=== PATIENT | female | born 1985 | race Caucasian/White ===

== ENCOUNTER → 2018-02-14 16:22 | Outpatient (CLI) | payer BC, SELFPAY ==
[2018-02-14 19:07] LABS: Chlamydia Trachomatis by PCR Negative (Negative); Neisserai gonorrhoeae by PCR Negative (Negative); Probe Check PASS; Sample Adequacy Control PASS; Specimen Processing Control PASS
== END ==
PROVIDERS: Family Provider Family Medicine; PCP Family Medicine; Visit Provider Obstetrics & Gynecology
DX: Z34.90 Encounter for supervision of normal pregnancy, unspecified, unspecified trimester (principal)
CPT/HCPCS: 87491; 87591

== ENCOUNTER → 2018-03-02 17:05 | Outpatient (CLI) | payer SELFPAY | PROVIDERS: Family Provider Family Medicine; PCP Family Medicine; Visit Provider Obstetrics & Gynecology | DX: O09.90 Supervision of high risk pregnancy, unspecified, unspecified trimester (principal); Z3A.00 Weeks of gestation of pregnancy not specified | CPT/HCPCS: 87086; 87088 ==

== ENCOUNTER → 2018-04-11 15:56 | Outpatient (CLI) | payer OTHER, SELFPAY ==
[2018-04-11 17:25] LABS: Absolute Lymphocyte Count 2.33 X10^3/ul (0.83-4.51); Absolute Neutrophil Count 7.9 X10^3/uL (2.0-7.7); Basophil# 0.03 X10^3/uL; Basophil% 0.3 % (0-1); Eosinophil# 0.24 X10^3/uL; Eosinophils% 2.2 % (0-5); Hematocrit 34.6 % (37-47); Hemoglobin 11.6 g/dl (12.0-15.0); Lymphocyte # 2.33 X10^3/ul (4.0); Lymphocyte % 21.1 % (19-41); Mean Corp Hgb Conc 33.5 g/gl (32-36); Mean Corpuscular Hgb 30.1 pg (27.0-32.0); Mean Corpuscular Volume 89.6 fL (81-99); Mean Platelet Vol. 8.6 fl (6.2-12.0); Monocyte# 0.51 X10^3/uL; Monocyte% 4.6 % (0-10); Neutrophil # 7.91 X10^3/uL (2.7-7.7); Neutrophil % 71.6 % (47-70); POSITIVE COUNT NO; POSITIVE DIFFERENTIAL NO; POSITIVE MORPHOLOGY NO; Platelet Count 288 K/mm3 (150-450); RBC Distribution Width SD 41.7 fl (35.1-43.9); Red Blood Count 3.86 M/mm3 (4.2-5.4)
[2018-04-11 17:55] LABS: ALB/GLOB Ratio 0.7 RATIO (0.9-2.4); AST(SGOT) 12 U/L (15-37); Alanine Aminotransfer ALT/SGPT 21 U/L (13-56); Alkaline Phosphatase 45 U/L (45-117); Anion Gap 10 (5-15); BUN 9 mg/dL (7-18); BUN/Creat Ratio 17.6 RATIO (10-20); Calcium,Total 8.4 mg/dL (8.5-10.1); Chloride 104 mmol/L (98-107); Creatinine, Serum 0.51 mg/dL (0.55-1.02); EST Glomerular Filtration Rate 149 mL/min (>60); Est Glom Filt Rate - Afr Amer 181 mL/min (>60); Globulin 4.2 g/dL (2.2-4.2); Glucose 108 mg/dL (74-106); Glucose Challenge Gest 1H 50g 108 mg/dL (70-140); Potassium 3.2 mmol/L (3.5-5.1); Protein, Total 7.2 g/dL (6.4-8.2); Sodium Level 135 mmol/L (136-145)
[2018-04-11 19:02] LABS: HIV - WCH Non-Reactive (Nonreactive); Rubella IgG 19.3 IU/mL
[2018-04-13 01:18] LABS: Rapid Plasmin Reagin (RPR) NONREACTIVE (NONREACTIVE)
[2018-04-13 10:53] LABS: HEPATITIS B SURFACE AG Negative (Negative)
== END ==
PROVIDERS: Visit Provider Obstetrics & Gynecology
DX: O09.91 Supervision of high risk pregnancy, unspecified, first trimester (principal); Z3A.00 Weeks of gestation of pregnancy not specified
CPT/HCPCS: 36415; 80053; 82950; 85025; 86592; 86703; 86762; 86850; 86900; 87340

== ENCOUNTER → 2018-04-25 16:00 | Outpatient (CLI) | payer OTHER, SELFPAY ==
[2018-04-25 16:28] LABS: Protein, Urine (Random) 17.6 mg/dL (<11.9); Protein:Creat Ratio 109 mg/g CRE (0-200)
[2018-04-25 18:51] LABS: Chlamydia Trachomatis by PCR Negative (Negative); Neisserai gonorrhoeae by PCR Negative (Negative); Probe Check PASS; Sample Adequacy Control PASS; Specimen Processing Control PASS
== END ==
PROVIDERS: Family Provider Family Medicine; PCP Family Medicine; Referring Provider Obstetrics & Gynecology; Visit Provider Obstetrics & Gynecology
DX: I10 Essential (primary) hypertension (principal)
CPT/HCPCS: 82570; 84156; 87086; 87088; 87491; 87591

== ENCOUNTER → 2018-05-11 15:32 | Outpatient (CLI) | payer OTHER, SELFPAY ==
--- NOTE | 2018-05-11 15:33 | US_ITS ---
STUDY: SECOND AND THIRD TRIMESTER OBSTETRICAL ULTRASOUND REASON FOR EXAM: Female, 33 years old. Anatomy. LMP: December 28, 2017. TECHNIQUE: Transabdominal # of Images: 109 TECHNICAL QUALITY: Adequate. PRIOR ULTRASOUND: None. FINDINGS: There is a single intrauterine fetus. The fetus is in a breech presentation. There is demonstrated cardiac activity with a heart rate of 156 bpm. There is a normal amniotic fluid volume. The largest amniotic fluid pocket measures 4.7 cm. The placenta is anterior in location and is not low lying. There are Grade 0 placental changes. The cervix measures 4.5 cm in length. The bilateral adnexal regions are normal. BIOMETRY: BPD: 4.62 cm: 20 weeks, 0 days HC: 17.68 cm: 20 weeks, 2 days AC: 15.45 cm: 20 weeks, 5 days FL: 3.22 cm: 20 weeks, 1 days CI: 80 FL/BPD: 70 FL/HC: FL/AC: 21 HC/AC: 1.4 age by current US: 20 weeks, 2 days. NATALIE by current US: September 26, 2018. Estimated weight: 346 grams, +/- 51 grams, 97 %. Age by LMP: 19 weeks, 1 days. NATALIE by LMP: October 04, 2018. ANATOMY: Gender: Indeterminant Cranium: Normal lateral ventricles. Normal choroid plexus. Normal cerebellum. Normal cisterna magna. The face, nose and lips are not visualized. Chest: Normal 4-chamber heart. Abdomen/Pelvis: Normal diaphragm. Normal stomach. Normal abdominal wall. Normal cord insertion. Normal 3 vessel cord. Normal kidneys. Normal bladder. Spine: Normal cervical spine. Normal thoracic spine. Normal lumbar spine. Normal sacrum. Extremities: Normal bilateral upper extremities. Normal bilateral lower extremities. US/OB Anatomy Scan IMPRESSION: 1. Live single intrauterine at 20 weeks, 2 days. NATALIE is September 26, 2018. 2. EFW 346 g. 3. Adequate amniotic fluid. 4. Anterior grade 1 placenta. 5. Breech presentation. 6. Nonvisualization of the face, nose and lips. The anatomy is otherwise grossly unremarkable. Electronically Signed: Nathanael Harris DO at 8:37 EDT Tel [phone], Service support ,
== END ==
PROVIDERS: Family Provider Family Medicine; PCP Family Medicine; Referring Provider Obstetrics & Gynecology; Visit Provider Obstetrics & Gynecology
DX: O09.90 Supervision of high risk pregnancy, unspecified, unspecified trimester (principal)
CPT/HCPCS: 76805

== ENCOUNTER → 2018-06-22 18:38 | Outpatient (CLI) | payer OTHER, SELFPAY ==
[2018-06-22 16:15] VITALS: BMI 37.7
[2018-06-22 19:27] LABS: Protein, Urine (Random) 33.5 mg/dL (<11.9); Protein:Creat Ratio 110 mg/g CRE (0-200)
--- OUTSIDE RECORDS SUMMARY | 2018-08-17 16:37 | XMS RPT_ITS ---
:1985 Author Organization OHIP Support Name Relationship Address Phone DESTINEE HOOD Unavailable [address] + [place] [address] TRILOCSCH Unavailable [address] + [place] [address] [place], YRIS Unavailable Unavailable + [place] [address] RUTH DESTINEE Unavailable [address] + [place] [address] TRILOCSCH Unavailable [address] + [place] [address] [place], YRIS Unavailable Unavailable + [place] [address] DESTINEE HOOD Unavailable [address] + [place] [address] TRILOCSCH Unavailable [address] + [place] [address] [place], YRIS Unavailable Unavailable + [place] [address] DESTINEE HOOD Unavailable [address] + [place] [address] TRILOCSCH Unavailable [address] + [place] [address] [place], YRIS Unavailable 1 + [place] [address] DESTINEE HOOD Unavailable [address] + [place] [address] TRILOCSCH Unavailable [address] + [place] [address] [place], YRIS Unavailable 1 + [place] [address] DESTINEE HOOD Unavailable [address] + [place] [address] TRILOCSCH Unavailable [address] + [place] [address] [place], YRIS Unavailable Unavailable + [place] [address] DESTINEE HOOD Unavailable [address] + [place] [address] TRILOCSCH Unavailable [address] + [place] [address] [place], YRIS Unavailable [address] + [place] [address] DESTINEE HOOD Unavailable [address] + [place] [address] [facility] Unavailable [address] + [place] [address] [place], YRIS Unavailable [address] + [place] [address] DESTINEE HOOD Unavailable [address] + [place], [place] [id number] [place] [address] [address] + [place] [address] [place], YRIS Unavailable [address] + [place] [address] DESTINEE HOOD Unavailable [address] + [place] [address] [facility] Unavailable [address] + [place] [address] [place], YRIS Unavailable [address] + [place] [address] DESTINEE HOOD Unavailable [address] + [place], [place] [id number] [place] [address] Unavailable [address] + [place] [address] [place], YRIS Unavailable [address] + [place] [address] Destinee Hood Unavailable [address] + [place], [place] [id number] [place] [address] Unavailable . +UN [place] [address] [place], YRIS Unavailable [address] + [place] [address] Destinee Hood Unavailable [address] + [place] [address] [facility] Unavailable . +UN [address] YRIS Unavailable [address] + [place] [address] DESTINEE HOOD Unavailable [address] + [place] [address] [facility] Unavailable [address] + [address] YRIS Unavailable [address] + [place] [address] Care Team Providers Name Role Phone Yi Patton Attending Unavailable Yi Patton Referring Unavailable Omar, Felipe Primary Care Unavailable Rome Gaines Attending Unavailable LeandroonyYi Referring Unavailable Omar, Felipe Primary Care Unavailable Yi Patton Consulting Unavailable MarkanthonyYi Attending Unavailable Omar, Felipe Referring Unavailable Omar, Felipe Primary Care Unavailable MarcanthonyYi Attending Unavailable Omar, Felipe Primary Care Unavailable MarcanthonyYi Referring Unavailable MarcanthonyYi Attending Unavailable Omar, Felipe Referring Unavailable Omar, Felipe Primary Care Unavailable MarkanthonyYi Attending Unavailable Omar, Felipe Primary Care Unavailable MarcanthonyYi Referring Unavailable MarcanthonyYi Attending Unavailable Omar, Felipe Referring Unavailable Omar, Felipe Primary Care Unavailable MarcanthonyYi Attending Unavailable MarcanthonyYi Referring Unavailable Primay Care Physicia, No Primary Care Unavailable Cynthia Coleman Attending Unavailable Omar, Felipe Referring Unavailable MarcdeepakonyYi Attending Unavailable MarcanthonyYi Referring Unavailable Omar, Felipe Primary Care Unavailable Yi Patton Attending Unavailable MarkanthonyYi Referring Unavailable Omar, Felipe Primary Care Unavailable Yi Patton Attending Unavailable Omar, Felipe Referring Unavailable MarcanthonyYi Attending Unavailable Omar, Felipe Referring Unavailable MarcanthonyYi Attending Unavailable Omar, Felipe Primary Care Unavailable MarcanthonyYi Referring Unavailable PROBLEMS PROBLEMS DATE TYPE CONDITION / CODE ATTENDING STATUS SOURCE 07/06/2018 Unknown O16.9 - Rome Gaines Active [place] Unspecified [facility] hypertension, Repository unspecified trimester / O16.9(ICD-10) 06/23/2018 Unknown R80.9 - Marcanthony, Active [place] Proteinuria, [facility] unspecified / Hospital R80.9(ICD-10) Repository 06/22/2018 Unknown Z34.90 - Encounter Marcanthony, Active [place] for supervision of [facility] normal , Hospital unspecified, Repository unspecified trimester / Z34.90(ICD-10) 06/22/2018 Unknown Z98.891 - History Marcanthony, Active [place] of uterine scar [facility] from previous Hospital surgery / Repository Z98.891(ICD-10) 06/22/2018 Unknown 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, 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 / Hospital D68.51(ICD-10) Repository 06/22/2018 Unknown O16.2 - Marcanthony, Active [place] Unspecified [facility] hypertension, Repository second trimester / O16.2(ICD-10) 06/22/2018 Unknown O09.92 - Marcanthony, Active [place] Supervision of [facility] high risk Hospital , Repository unspecified, second trimester / O09.92(ICD-10) 06/22/2018 Unknown E87.6 - Marcanthony, Active [place] Hypokalemia / [facility] E87.6(ICD-10) Hospital Repository 05/25/2018 Unknown Z23 - Encounter Marcanthony, Active [place] for immunization / [facility] Z23(ICD-10) Hospital Repository 05/25/2018 Unknown Z3A.21 - 21 weeks Marcanthony, Active [place] gestation of [facility] / Hospital Z3A.21(ICD-10) Repository 04/25/2018 Unknown I10 - Essential Charlotte, Cynthia Active [place] (primary) [facility] hypertension / Hospital I10(ICD-10) Repository 03/06/2018 Unknown O09.90 - Marcanthony, Active [place] Supervision of [facility] high risk Hospital , Repository unspecified, unspecified trimester / O09.90(ICD-10) 03/19/2018 Unknown O16.1 - Marcanthony, Active [place] Unspecified [facility] hypertension, Repository first trimester / O16.1(ICD-10) 03/19/2018 Unknown O09.91 - Abdi Active [place] Supervision of [facility] , Repository unspecified, first trimester / O09.91(ICD-10) PROCEDURES PROCEDURES No Procedure Records FoundRESULTS RESULTS 12 LEAD ELECTROCARDIOGRAM Observed: 07/06/2018 Status: F Source: [place] 10:51 AM [facility] REPOSITORY [facility] Cardiovascular Services [address] [place] [address] 12 Lead EKG 07/03/18 1636 MR#: [id number] Acct: [id number] Name: JESUS HOOD Rep #: [id number] : 1985 33 From: Rome Gaines MD Attending Dr: Yi Patton MD Status: REG CLI Ordering Dr: Yi Patton MD Date: 07/03/18 Location: LAB Sex: F C Admitted: Test Reason : HIGH BP Blood Pressure : / mmHG Vent. Rate : 095 BPM Atrial Rate : 095 BPM P-R Int : 156 ms QRS Dur : 080 ms QT Int : 354 ms P-R-T Axes : 043 008 018 degrees QTc Int : 444 ms Normal sinus rhythm Low voltage QRS Borderline ECG Confirmed by LIANA JOHNSON, ROME ([id number]), market editor GRACIE ROUSSEAU ([id number]) on 07/06/2018 10:51:07 AM Referred By: Yi Patton Confirmed By:ROME GAINES MD 07/06/18 1051 Date Rome Gaines MD CC: Felipe Nelson MD; Yi Patton MD Signed POTASSIUM Collected: 07/03/2018 Status: F Source: [place] 4:23 PM [facility] REPOSITORY TYPE CODE TESTS RESULT OUT OF RANGE REFERENCE UNITS LAB L501.5600 3.5-5.1 mmol/L Low K 3.3 Performed By: #### L501.5600 #### [facility] [address] [place], [address] PROTEIN+CREATININE Collected: Status: F Source: [place] RATIO,URINE 06/22/2018 6:39 PM [facility] REPOSITORY TYPE CODE TESTS RESULT OUT OF RANGE REFERENCE UNITS LAB L501.1200 NO RANGE EST. mg/dL Normal UR CREAT 305.00 LAB L501.1930 <11.9 mg/dL High 33.5 PROTEIN,UR.R AN. LAB L501.1940 0-200 mg/g CRE Normal PROT:CRE 110 RATIO Performed By: #### L501.0900 #### [facility] [address] [place], [address] SILK CONDITIONER OFFICE VISIT Observed: 06/22/2018 Status: F Source: [place] REPORT 4:57 PM [facility] REPOSITORY [facility] [address] [place] [address] OFFICE VISIT Date of Service: 06/22/18 MR#: [id number] Acct: [id number] Name: JESUS HOOD Rep #: [id number] : 1985 Provider: Yi Patton MD Age/Sex: 33/F Location: [facility] Status: Signed Intake Vital Signs06/22/18 Height 5 ft 7 in 06/22/18 Weight: 241 lb 06/22/18 Body Mass Index (BMI) 37.7 06/22/18 Blood Pressure 120/82 H Intake Visit Reasons: EST OB 26 WEEKS Chief Complaint: est ob Desulfurizer Machine Required: No Is patient in pain?: No Allergies No Known Allergies Allergy (Verified 06/22/18 16:15) Medications vitamin,calcium,mnockngl-kgau-jkqeu acid tablet 1 tab PO QDAY 02/14/18 [History Confirmed 06/22/18] potassium chloride ER 20 mEq tablet,extended release 40 meq PO DAILY #60 tab 04/17/18 [Rx Confirmed 06/22/18] labetalol 200 mg tablet 200 mg PO BID #180 tab 06/22/18 [Rx Confirmed 06/22/18] Last Menstral Period: 12/28/17 Zika: Zika virus screening: Negative : No PFSH PFSH Medical History Hypertension (Chronic) Surgical History delivery delivered (Acute) Family History Mother Hypertension Father CVA (cerebral vascular accident) Factor 5 Leiden mutation, heterozygous Social History Smoking Status: Never smoker alcohol intake: never substance use type: does not use caffeine: Yes what type of physical activity do you participate in: walking seatbelt use: always do you feel safe at home: Yes 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 DateName GA/Weeks Outcome Route Bth WeighInfant GeLabor LgtAnesthesiDel LocatProvider FOB t n h a n Delivery Date: 02/28/13 On 03/02/18 @ 10:27 Mickie Figueroa Breach HPI EST OB 26 WEEKS: Details: JESUS HOOD is a 33 year old who presents for routine OB visit. OB Visit NATALIE Calculator Estimated Delivery Date 10/04/18 Based on LMP (certain) 12/28/17 Current WG 25w 1d Number 1 Expected Delivery Route/Plan Specific Issue/Plans flu vaccine: given tdap vaccine: [] rhogam: [] LARC form signed: [] labor support person: Destinee pain management: [] cut cord/dad catch: [] : [] PP control planned: [] special requests: [] Initial Weight: Not Recorded Date Weight BP Urine PrFHR FuHt Pres MoCTX DilationFetal StVisit NoProviderComments E ot v te [place] G Effac lucose ed Visit Notes Visit Date: 06/22/18 had mastitis this weekend. resolved with antibtiotics. bps well controlled. Yi Patton MD on 06/22/18 Visit Date: 05/25/18 no vb lof good fm n oregular ctx. Yi Patton MD on 05/25/18 Visit Date: 04/25/18 no VB, LOF. Difficulty swallowing Potassium Cynthia Coleman NP-C on 04/25/18 Visit Date: 04/05/18 no vb lof no cramping Yi Patton MD on 04/05/18 Visit Date: 03/02/18 no vb cramping Yi Patton MD on 03/02/18 Diagnostics Diagnostics Labs Blood Type O POSITIVE 04/11/18 Antibody Screen NEGATIVE 04/11/18 Hct 34.6 % (37-47) L 04/11/18 Hgb 11.6 g/dl (12.0-15.0) L 04/11/18 Obstetrics Ultrasound 05/11/18 Rubella IgG Antibody 19.3 IU/mL 04/11/18 RPR NONREACTIVE (NONREACTIVE) 04/11/18 Hep Bs Antigen Negative (Negative) 04/11/18 Chlam trachomat DNA PCR Negative (Negative) 04/25/18 N.gonorrhoeae DNA (PCR) Negative (Negative) 04/25/18 Glucose 1 Hr 50 gm 108 mg/dL (70-140) 04/11/18 Details: HIV: Urine Culture: Sequential Screen: NIPT Screen: Results [id number] Office Urine Glucose Negative Last Edit by Leann Robin on 06/22/18 16:20 Office Urine Protein 1+ Last Edit by Leann Robin on 06/22/18 16:20 Assessment AND Plan Problems 1. History of delivery Z98.891 discussed . uptodate eduation, 2. Hypertension affecting in second trimester O16.2 labetalol, check baseline labs 3. Z34.90 4. Factor V Leiden D68.51 discussed risks of DVT in - current recommendation for exp management and consider anticoagulation PP 5. Supervision of high risk in second trimester O09.92 *urine protein/cr ratio NATALIE 10/04/18 PC Ashley Destinee 6. Low serum potassium E87.6 04/25/18 Took short course potassium. Recheck next visit Plan movement and labor precautions reviewed. ACOG trimester education reviewed and updated. see problem list details for updated plan management information and see below for orders placed at this visit. [place] appropriate handout given. Orders Orders: Medications Refilled: Coding Level of Care Code OB Routine Diagnoses History of delivery Z98.891 Hypertension affecting in second trimester O16.2 Trimester: second trimester Z34.90 Factor V Leiden D68.51 Supervision of high risk in second trimester O09.92 Trimester: second trimester Low serum potassium E87.6 06/22/18 1657 <Electronically signed by Yi Patton MD> Date Yi Patton MD Cosigner Signature: Date (if applicable) CC: SILK CONDITIONER OFFICE VISIT Observed: 05/25/2018 Status: F Source: [place] REPORT 5:02 PM [facility] [address] [place] [address] OFFICE VISIT Date of Service: 05/25/18 MR#: [id number] Acct: [id number] Name: JESUS HOOD Rep #: [id number] : 1985 Provider: Yi Patton MD Age/Sex: 33/F Location: [facility] Status: Signed Intake Vital Signs05/25/18 Height 5 ft 7 in 05/25/18 Weight: 239 lb 6 oz 05/25/18 Body Mass Index (BMI) 37.5 05/25/18 Blood Pressure 150/88 H Intake Visit Reasons: EST OB 22 WEEKS Desulfurizer Machine Required: No Accompanied by: Is patient in pain?: No Allergies No Known Allergies Allergy (Verified 05/25/18 16:27) Medications vitamin,calcium,lqyppduy-ygjf-ecmtf acid tablet 1 tab PO QDAY 02/14/18 [History Confirmed 05/25/18] labetalol 200 mg tablet 200 mg PO BID #60 tab 04/16/18 [Rx Confirmed 05/25/18] potassium chloride ER 20 mEq tablet,extended release 40 meq PO DAILY #60 tab 04/17/18 [Rx Confirmed 05/25/18] Last Menstral Period: 12/28/17 Zika: Zika virus screening: Negative : No PFSH PFSH Medical History Hypertension (Chronic) Surgical History delivery delivered (Acute) Family History Mother Hypertension Father CVA (cerebral vascular accident) Factor 5 Leiden mutation, heterozygous Social History Smoking Status: Never smoker alcohol intake: never substance use type: does not use caffeine: Yes what type of physical activity do you participate in: walking seatbelt use: always do you feel safe at home: Yes 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 DateName GA/Weeks Outcome Route Bth WeighInfant GeLabor LgtAnesthesiDel LocatProvider FOB t n h a n Delivery Date: 02/28/13 On 03/02/18 @ 10:27 Mickie Figueroa Breach HPI EST OB 22 WEEKS: Details: JESUS HOOD is a 33 year old who presents for routine OB visit. OB Visit NATALIE Calculator Estimated Delivery Date 10/04/18 Based on LMP (certain) 12/28/17 Current WG 21w 1d Number 1 Expected Delivery Route/Plan Specific Issue/Plans flu vaccine: given tdap vaccine: [] rhogam: [] LARC form signed: [] labor support person: [place] pain management: [] cut cord/dad catch: [] : [] PP control planned: [] special requests: [] Initial Weight: Not Recorded Date Weight BP Urine PrFHR FuHt Pres MoCTX DilationFetal StVisit NoProviderComments E ot v te [place] G Effac lucose ed Visit Notes Visit Date: 05/25/18 no vb lof good fm n oregular ctx. Yi Patton MD on 05/25/18 Visit Date: 04/25/18 no VB, LOF. Difficulty swallowing Potassium Cynthia Coleman NP-C on 04/25/18 Visit Date: 04/05/18 no vb lof no cramping Yi Patton MD on 04/05/18 Visit Date: 03/02/18 no vb cramping Yi Patton MD on 03/02/18 Diagnostics Diagnostics Labs Blood Type O POSITIVE 04/11/18 Antibody Screen NEGATIVE 04/11/18 Hct 34.6 % (37-47) L 04/11/18 Hgb 11.6 g/dl (12.0-15.0) L 04/11/18 Obstetrics Ultrasound 05/11/18 Rubella IgG Antibody 19.3 IU/mL 04/11/18 RPR NONREACTIVE (NONREACTIVE) 04/11/18 Hep Bs Antigen Negative (Negative) 04/11/18 Chlam trachomat DNA PCR Negative (Negative) 04/25/18 N.gonorrhoeae DNA (PCR) Negative (Negative) 04/25/18 Glucose 1 Hr 50 gm 108 mg/dL (70-140) 04/11/18 Details: HIV: Urine Culture: Sequential Screen: NIPT Screen: Office Meds Flucelvax Quad 9986-9616 (PF) Performing Provider: Yi Patton MD Administered by: Mickie Figueroa on 05/25/18 16:44 Dose Route Admin Location Lot Number Expiration Date NDC Jacker 60 mcg IM right deltoid [id number] 01/20/19 40615-812-67 SEQIRUS Results [email or web address] Office Urine Glucose Negative Last Edit by Mickie Figueroa on 05/25/18 16:47 Office Urine Protein Negative Last Edit by Mickie Figueroa on 05/25/18 16:47 Assessment AND Plan Problems 1. History of delivery Z98.891 2. Hypertension affecting in second trimester O16.2 labetalol, check baseline labs 3. Factor V Leiden D68.51 discussed risks of DVT in - current recommendation for exp management and consider anticoagulation PP 4. Supervision of high risk in second trimester O09.92 *urine protein/cr ratio NATALIE 10/04/18 PC Ashley Destinee 5. 21 weeks gestation of Z3A.21 Plan ACOG trimester education reviewed and updated. see problem list details for updated plan management information and see below for orders placed at this visit. [place] appropriate handout given. Orders Orders: Medications Discontinued: Flucelvax Quad 8646-0190 (PF) (flu vac qs 2017(4 yr60 mcg (0.5 mL) IM ONCE 1 mL 0RF NS Z23 up)CD(PF)) Discontinued Reason: Office Medicat ion has been Documented as given Coding Level of Care Code OB Routine Diagnoses History of delivery Z98.891 Hypertension affecting in second trimester O16.2 Trimester: second trimester Factor V Leiden D68.51 Supervision of high risk in second trimester O09.92 Trimester: second trimester 21 weeks gestation of Z3A.21 Weeks of gestation: 21 weeks 05/25/18 1702 <Electronically signed by Yi Patton MD> Date Yi Patton MD Cosigner Signature: Date (if applicable) CC: OB ANATOMY SCAN Observed: 05/11/2018 Status: F Source: [place] 3:34 PM [facility] REPOSITORY [facility] Imaging Services [address] [place] [address] OB Anatomy Scan MR#: [id number] Acct: [id number] Name: RUTHJESUS M Rep #: [id number] : 1985 F 33 From: Nathanael Harris DO PCP: Felipe Nelson MD Status: REG CLI Study: OB Anatomy Scan Date of Exam: 05/11/18 Exam# [id number] Ordering Dr: Yi Patton MD STUDY: SECOND AND THIRD TRIMESTER OBSTETRICAL ULTRASOUND REASON FOR EXAM: Female, 33 years old. Anatomy. LMP: December 28, 2017. TECHNIQUE: Transabdominal # of Images: 109 TECHNICAL QUALITY: Adequate. PRIOR ULTRASOUND: None. FINDINGS: There is a single intrauterine fetus. The fetus is in a breech presentation. There is demonstrated cardiac activity with a heart rate of 156 bpm. There is a normal amniotic fluid volume. The largest amniotic fluid pocket measures 4.7 cm. The placenta is anterior in location and is not low lying. There are Grade 0 placental changes. The cervix measures 4.5 cm in length. The bilateral adnexal regions are normal. BIOMETRY: BPD: 4.62 cm: 20 weeks, 0 days HC: 17.68 cm: 20 weeks, 2 days AC: 15.45 cm: 20 weeks, 5 days FL: 3.22 cm: 20 weeks, 1 days CI: 80 FL/BPD: 70 FL/HC: FL/AC: 21 HC/AC: 1.4 age by current US: 20 weeks, 2 days. NATALIE by current US: September 26, 2018. Estimated weight: 346 grams, +/- 51 grams, 97 %. Age by LMP: 19 weeks, 1 days. NATALIE by LMP: October 04, 2018. ANATOMY: Gender: Indeterminant Cranium: Normal lateral ventricles. Normal choroid plexus. Normal cerebellum. Normal cisterna magna. The face, nose and lips are not visualized. Chest: Normal 4-chamber heart. Abdomen/Pelvis: Normal diaphragm. Normal stomach. Normal abdominal wall. Normal cord insertion. Normal 3 vessel cord. Normal kidneys. Normal bladder. Spine: Normal cervical spine. Normal thoracic spine. Normal lumbar spine. Normal sacrum. Extremities: Normal bilateral upper extremities. Normal bilateral lower extremities. US/OB Anatomy Scan IMPRESSION: 1. Live single intrauterine at 20 weeks, 2 days. NATALIE is September 26, 2018. 2. EFW 346 g. 3. Adequate amniotic fluid. 4. Anterior grade 1 placenta. 5. Breech presentation. 6. Nonvisualization of the face, nose and lips. The anatomy is otherwise grossly unremarkable. Electronically Signed: Nathanael Harris DO at 8:37 EDT Tel [phone], Service support , CC: Felipe Nelson MD; Yi Patton MD Setup Technician: Signed PROTEIN+CREATININE Collected: Status: F Source: [place] RATIO,URINE 04/25/2018 4:09 PM [facility] REPOSITORY TYPE CODE TESTS RESULT OUT OF RANGE REFERENCE UNITS LAB L501.1200 NO RANGE EST. mg/dL Normal UR CREAT 161.00 LAB L501.1930 <11.9 mg/dL High 17.6 PROTEIN,UR.R AN. LAB L501.1940 0-200 mg/g CRE Normal PROT:CRE 109 RATIO Performed By: #### L501.0900 #### [facility] [address] [place], [address] CT/NG WCH BY PCR Collected: 04/25/2018 Status: F Source: [place] 4:09 PM [facility] REPOSITORY TYPE CODE TESTS RESULT OUT OF RANGE REFERENCE UNITS LAB L8200.2100 Negative Normal Chlam Negative Trac PCR LAB L8200.2200 Negative Normal NG by Negative PCR Performed By: #### L8200.1999, M100.0650 #### [facility] [address] [place], [address] Observed: 04/25/2018 Status: F Source: [place] CULTURE, URINE 4:09 PM [facility] REPOSITORY Urine Culture Probable skin contaminants. ORGANISM 1: Mixed Gram Positive Organisms [place] Count >100,000 Performed By: #### L8200.1999, M100.0650 #### [facility] [address] [place], [address] SILK CONDITIONER OFFICE VISIT Observed: 04/25/2018 Status: F Source: [place] REPORT 2:31 PM [facility] REPOSITORY [facility] [address] [place] [address] OFFICE VISIT Date of Service: 04/25/18 MR#: [id number] Acct: [id number] Name: JESUS HOOD Rep #: [id number] : 1985 Provider: CHIN Coleman Age/Sex: 33/ Location: [facility] Status: Signed Intake Vital Signs04/25/18 Height 5 ft 7 in 04/25/18 Weight: 237 lb 04/25/18 Body Mass Index (BMI) 37.0 04/25/18 Blood Pressure 122/80 H Intake Visit Reasons: EST OB 18 WEEKS Allergies No Known Allergies Allergy (Verified 04/05/18 16:08) Medications vitamin,calcium,amzwjzlu-cosc-ypitb acid tablet 1 tab PO QDAY 02/14/18 [History Confirmed 04/05/18] labetalol 200 mg tablet 200 mg PO BID #60 tab 04/16/18 [Rx] potassium chloride ER 20 mEq tablet,extended release 40 meq PO DAILY #60 tab 04/17/18 [Rx] Last Menstral Period: 12/28/17 PFSH PFSH Medical History Hypertension (Chronic) Surgical History delivery delivered (Acute) Family History Mother Hypertension Father CVA (cerebral vascular accident) Factor 5 Leiden mutation, heterozygous Social History Smoking Status: Never smoker alcohol intake: never substance use type: does not use caffeine: Yes what type of physical activity do you participate in: walking seatbelt use: always do you feel safe at home: Yes additional social history: Destinee- Officer 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 DateName GA/Weeks Outcome Route Bth WeighInfant GeLabor LgtAnesthesiDel LocatProvider FOB t n h a n Delivery Date: 02/28/13 On 03/02/18 @ 10:27 Mickie Figueroa Breach HPI EST OB 18 WEEKS: Details: JESUS HOOD is a 33 year old who presents for routine OB visit. OB Visit NATALIE Calculator Estimated Delivery Date 10/04/18 Based on LMP (certain) 12/28/17 Current WG 16w 6d Number 1 Specific Issue/Plans flu vaccine: [] tdap vaccine: [] rhogam: [] LARC form signed: [] labor support person: Destinee pain management: [] cut cord/dad catch: [] : [] PP control planned: [] special requests: [] Initial Weight: Not Recorded Date Weight BP Urine PrFHR FuHt Pres MoCTX DilationFetal StVisit NoProviderComments E ot v te GA G Effac lucose ed Visit Notes Visit Date: 04/25/18 no VB, LOF. Difficulty swallowing Potassium ESTHER Benavides on 04/25/18 Visit Date: 04/05/18 no vb lof no cramping Yi Patton MD on 04/05/18 Visit Date: 08/10/18 no vb cramping Yi Patton MD on 03/02/18 Diagnostics Diagnostics Labs Blood Type O POSITIVE 04/11/18 Antibody Screen NEGATIVE 04/11/18 Hct 34.6 % (37-47) L 04/11/18 Hgb 11.6 g/dl (12.0-15.0) L 04/11/18 Rubella IgG Antibody 19.3 IU/mL 04/11/18 RPR NONREACTIVE (NONREACTIVE) 04/11/18 Hep Bs Antigen Negative (Negative) 04/11/18 Chlam trachomat DNA PCR Negative (Negative) 02/14/18 N.gonorrhoeae DNA (PCR) Negative (Negative) 02/14/18 Glucose 1 Hr 50 gm 108 mg/dL (70-140) 04/11/18 Details: HIV: Urine Culture: Sequential Screen: NIPT Screen: Results [id number] Office Urine Glucose Negative Last Edit by Leann Robin on 04/25/18 14:18 Office Urine Protein Negative Last Edit by Leann Robin on 04/25/18 14:18 Assessment AND Plan Problems 1. Supervision of high risk in first trimester O *urine protein/cr ratio NATALIE 10/04/18 PC Stanleyumesh Destinee 2. Hypertension affecting in first trimester O16.1 labetalol, check baseline labs 3. History of section Z98.891 4. Factor V Leiden D68.51 discussed risks of DVT in - current recommendation for exp management and consider anticoagulation PP 5. 16 weeks gestation of Z3A.16 Plan Orders placed: urine protein creatinine ratio as baseline Has MFM anatomy US scheduled. Will check with Dr. Patton to change to liquid potassium as having difficulty swallowing tablets. Reviewed of labor precautions ACOG trimester education reviewed and updated See problem list details for updated plan of care Gestational age appropriate handout given RTO: 4 weeks and wants to discuss TOLAC with JESSICA Orders Orders: Coding Level of Care Code OB Routine Diagnoses Supervision of high risk in first trimester O Trimester: first trimester Hypertension affecting in first trimester O16.1 Trimester: first trimester History of section Z98.891 Factor V Leiden D68.51 16 weeks gestation of Z3A.16 Weeks of gestation: 16 weeks 04/25/18 1431 <Electronically signed by Cynthia Charlotte LUMBER STACKER-C> Date Cynthia Coleman LUMBER STACKER-C Cosigner Signature: Date (if applicable) CC: CBC W/DIFF, AUTOMATED Collected: 04/11/2018 Status: F Source: [place] 5:11 PM [facility] REPOSITORY TYPE CODE TESTS RESULT OUT OF RANGE REFERENCE UNITS LAB L100.1000 4.4-11.0 K/mm3 Normal WBC 11.0 LAB L100.1200 4.2-5.4 M/mm3 Low RBC 3.86 LAB L100.1300 12.0-15.0 g/dl Low HGB 11.6 LAB L100.1400 37-47 % Low HCT 34.6 LAB L100.1500 81-99 fL Normal MCV 89.6 LAB L100.1600 27.0-32.0 pg Normal MCH 30.1 LAB L100.1700 32-36 g/gl Normal MCHC 33.5 LAB L100.1810 11.6-14.6 % Normal RDW CV 13.0 LAB L100.1820 35.1-43.9 fl Normal RDW SD 41.7 LAB L100.1900 150-450 K/mm3 Normal PLT 288 LAB L100.2000 6.2-12.0 fl Normal MPV 8.6 LAB L100.2100 47-70 % High NEUT% 71.6 LAB L100.2200 19-41 % Normal LY% 21.1 LAB L100.2300 0-10 % Normal MONO% 4.6 LAB L100.2400 0-5 % Normal EO% 2.2 LAB L100.2500 0-1 % Normal BASO% 0.3 LAB L100.2550 0.0-0.9 % Normal IM GRAN % 0.200 Result Comment: IG% - Immature Granulocytes (promyelocytes, myelocytes and metamyelocytes) > 1% indicates that a LEFT SHIFT is Present. LAB L100.2620 2.0-7.7 X10 3/uL High Absolute Neut 7.9 LAB L100.2720 0.83-4.51 X10 3/ul Normal Absolute Lymph 2.33 Performed By: #### L100.0100, B101.7450 #### [facility] [address], [place], [id number] #### L3100.0390 #### [facility] (refer to report for specific site) refer to report for address and phone number TYPE AND SCREEN Collected: 04/11/2018 Status: F Source: [place] 5:11 PM [facility] REPOSITORY Order Comment: Reason for Type AND Screen/Red Cells: TYPE CODE TESTS RESULT OUT OF RANGE REFERENCE UNITS LAB B10.0800 O Normal BLOOD TYPE GEL POSITIVE LAB B100.4000 Normal Antibody NEGATIVE Screen Performed By: #### L100.0100, B101.7450 #### [facility] [place], [address] #### L3100.0390 #### [facility] (refer to report for specific site) refer to report for address and phone number HEPATITIS B SURFACE Collected: 04/11/2018 Status: F Source: [place] AG 5:11 PM [facility] REPOSITORY TYPE CODE TESTS RESULT OUT OF RANGE REFERENCE UNITS LAB L3100.0400 Negative Normal HB Negative SURF AG Result Comment: Performed at: - [facility] [id number] Resident Services Supervisor: Jose Huerta PhD, Phone: [phone] Performed By: #### L100.0100, B1.7450 #### [facility] [address] [facility] [place], [address] #### L3100.0390 #### [facility] (refer to report for specific site) refer to report for address and phone number COMPREHENSIVE METABOLIC Collected: 04/11/2018 Status: F Source: [place] PROFIL 5:11 PM [facility] REPOSITORY TYPE CODE TESTS RESULT OUT OF RANGE REFERENCE UNITS LAB L501.0100 74-106 mg/dL High GLU 108 Result Comment: Fasting Glucose result from 100 to 125 mg/dL suggests IMPAIRED HOMEOSTASIS per A.D.A. criteria. Please note revised GLUCOSE reference range effective 2017. LAB L501.1000 7-18 mg/dL Normal BUN 9 LAB L501.1100 0.55-1.02 mg/dL Low CREAT,SERUM 0.51 Result Comment: The validity of the calculated GFR AND GFRAA in patients over 70 years has not been determined. Clinical correlation is essential. LAB L501.1110 >60 mL/min Normal EST GFR 149 Result Comment: Non- GFR Calc LAB L501.1115 >60 mL/min Normal EST GFR - AA 181 Result Comment: GFR Calc LAB L501.1300 10-20 RATIO Normal BUN/CRE 17.6 LAB L501.1500 6.4-8.2 g/dL T Normal PROT 7.2 LAB L501.1800 3.2-5.0 g/dL Low ALB 3.0 LAB L501.1950 2.2-4.2 g/dL Normal GLOB 4.2 LAB L501.2000 0.9-2.4 RATIO Low A/G 0.7 LAB L501.2200 8.5-10.1 mg/dL Low CA 8.4 LAB L501.4100 15-37 U/L Low AST 12 LAB L501.4305 45-117 U/L Normal ALK P 45 LAB L501.4405 13-56 U/L Normal ALT 21 LAB L501.4600 0.20-1.00 mg/dL T Normal BILI 0.30 LAB L501.5300 136-145 mmol/L Low NA 135 LAB L501.5600 3.5-5.1 mmol/L Low K 3.2 LAB L501.5900 98-107 mmol/L CL Normal 104 LAB L501.6100 21.0-32.0 mmol/L Normal CO2 21.0 LAB L501.6200 5-15 Normal GAP 10 Performed By: #### L500.4050, L501.0250 #### [facility] [address] [place], [address] GLUCOSE CHALLENGE GEST Collected: 04/11/2018 Status: F Source: [place] 1H 50G 5:11 PM [facility] REPOSITORY TYPE CODE TESTS RESULT OUT OF RANGE REFERENCE UNITS LAB L501.0250 70-140 mg/dL Normal GLU GEST 108 50g 1H Performed By: #### L500.4050, L501.0250 #### [facility] [address] [place], [address] RUBELLA IGG Collected: 04/11/2018 Status: F Source: [place] 5:11 PM [facility] REPOSITORY TYPE CODE TESTS RESULT OUT OF RANGE REFERENCE UNITS LAB L509.4000 IU/mL Normal Rubella IgG 19.3 Result Comment: Antibody results Interpretation of Immune Status < 5 IU/ml Presumed Non-immune 5 - < 10 IU/ml Equivocal > or = 10 IU/ml Presumed Immune Performed By: #### L509.4000, L3890.6005, L700.5000 #### [facility] [address] [place], [address] HIV - [facility] Collected: 04/11/2018 Status: F Source: [place] 5:11 PM [facility] REPOSITORY TYPE CODE TESTS RESULT OUT OF RANGE REFERENCE UNITS LAB L3890.6005 Nonreactive Normal HIV - [facility] Non-Reactive Performed By: #### L509.4000, L3890.6005, L700.5000 #### [facility] [address] [place], [place], [address] RAPID PLASMIN REAGIN Collected: 04/11/2018 Status: F Source: [place] (RPR) 5:11 PM [facility] REPOSITORY TYPE CODE TESTS RESULT OUT OF REFERENCE UNITS RANGE LAB L700.5000 NONREACTIVE NONREACTIVE Normal RPR Performed By: #### L509.4000, L3890.6005, L700.5000 #### [facility] [address] [place], [address] SILK CONDITIONER OFFICE VISIT Observed: 04/06/2018 Status: F Source: [place] REPORT 6:12 AM [facility] REPOSITORY [facility] [address] [place] [address] OFFICE VISIT Date of Service: 04/05/18 MR#: [id number] Acct: [id number] Name: JESUS HOOD Rep #: [id number] : 1985 Provider: Yi Patton MD Age/Sex: 33/F Location: [facility] Status: Signed Intake Vital Signs04/05/18 Height 5 ft 7 in 04/05/18 Weight: 237 lb 2 oz 04/05/18 Body Mass Index (BMI) 37.1 04/05/18 Blood Pressure 138/92 Intake Visit Reasons: EST OB 14 WEEKS Chief Complaint: est ob Desulfurizer Machine Required: No Is patient in pain?: No Allergies No Known Allergies Allergy (Verified 04/05/18 16:08) Medications vitamin,calcium,adbthyyo-yzij-gghpv acid tablet 1 tab PO QDAY 02/14/18 [History Confirmed 04/05/18] labetalol 200 mg tablet 200 mg PO BID #60 tab 03/13/18 [Rx Confirmed 04/05/18] Last Menstral Period: 12/28/17 Zika: Zika virus screening: Negative : No PFSH PFSH Medical History Hypertension (Chronic) Surgical History delivery delivered (Acute) Family History Mother Hypertension Father CVA (cerebral vascular accident) Factor 5 Leiden mutation, heterozygous Social History Smoking Status: Never smoker alcohol intake: never substance use type: does not use caffeine: Yes what type of physical activity do you participate in: walking seatbelt use: always do you feel safe at home: Yes 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 DateName GA/Weeks Outcome Route Bth WeighInfant GeLabor LgtAnesthesiDel LocatProvider FOB t n h a n Delivery Date: 02/28/13 On 03/02/18 @ 10:27 Mickie Figueroa Breach HPI EST OB 14 WEEKS: Details: JESUS HOOD is a 33 year old who presents for routine OB visit. OB Visit NATALIE Calculator Estimated Delivery Date 10/04/18 Based on LMP (certain) 12/28/17 Current WG 14w 1d Number 1 Initial Weight: Not Recorded Date Weight BP Urine PFHR FuHt Pres MCTX DilatioFetal SVisit NProvideComment rot ov n t ote r s EGA Ef Gluco faced se 03/02/1236 lb 132/87 [id number] no vb c 8 4 oz e ramping 9w 1d Negati ve Visit Notes Visit Date: 04/05/18 no vb lof no cramping Yi Patton MD on 04/05/18 Visit Date: 03/02/18 no vb cramping Yi Patton MD on 03/02/18 Diagnostics Diagnostics Labs Chlam trachomat DNA PCR Negative (Negative) 02/14/18 N.gonorrhoeae DNA (PCR) Negative (Negative) 02/14/18 Details: HIV: Urine Culture: Sequential Screen: NIPT Screen: Results [id number] Office Urine Glucose Negative Last Edit by Leann Robin on 04/05/18 16:10 Office Urine Protein Negative Last Edit by Leann Robin on 04/05/18 16:10 Assessment AND Plan Problems 1. History of delivery Z98.891 2. Supervision of high risk in first trimester O09.91 NATALIE 10/04/18 PC Ashley Genaock 3. Factor V Leiden D68.51 discussed risks of DVT in - current recommendation for exp management and consider anticoagulation PP 4. Hypertension affecting in first trimester O16.1 labetalol, check baseline labs Plan ACOG trimester education reviewed and updated. see problem list details for updated plan management information and see below for orders placed at this visit. GA appropriate handout given. declines genetic testing, needs new ob bloodwork drawn still Orders Orders: Coding Level of Care Code OB Routine Diagnoses History of delivery Z98.891 Supervision of high risk in first trimester O09.91 Trimester: first trimester Factor V Leiden D68.51 Hypertension affecting in first trimester O16.1 Trimester: first trimester 04/06/18 0612 <Electronically signed by Yi Patton MD> Date Yi Patton MD Cosigner Signature: Date (if applicable) CC: SILK CONDITIONER OFFICE VISIT Observed: 03/07/2018 Status: F Source: [place] REPORT 1:06 PM [facility] [address] [place] [address] OFFICE VISIT Date of Service: 02/14/18 MR#: [id number] Acct: [id number] Name: JESUS HOOD Rep #: [id number] : 1985 Provider: Yi Patton MD Age/Sex: 33/F Location: [facility] Status: Signed Intake Vital Signs02/14/18 Height 5 ft 7 in 02/14/18 Weight: 236 lb 4 oz 02/14/18 Body Mass Index (BMI) 37.0 02/14/18 Blood Pressure 123/78 Intake Visit Reasons: NOB - NEEDED SEEN THIS WEEK PER IN [place] Chief Complaint: NEW OB Desulfurizer Machine Required: No Is patient in pain?: No Allergies No Known Allergies Allergy (Verified 03/02/18 10:20) Medications labetalol 300 mg tablet 300 mg PO BID 02/14/18 [History Confirmed 03/02/18] vitamin,calcium,gthchdtg-pzxe-mywuz acid tablet 1 tab PO QDAY 02/14/18 [History Confirmed 03/02/18] Last Menstral Period: 12/28/17 Zika: Zika virus screening: Negative : No PFSH PFSH Medical History Hypertension (Chronic) Surgical History delivery delivered (Acute) Family History Mother Hypertension Father CVA (cerebral vascular accident) Factor 5 Leiden mutation, heterozygous Social History Smoking Status: Never smoker alcohol intake: never substance use type: does not use caffeine: Yes what type of physical activity do you participate in: walking seatbelt use: always do you feel safe at home: Yes 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 DateName GA/Weeks Outcome Route Bth WeighInfant GeLabor LgtAnesthesiDel LocatProvider FOB t n h a n Delivery Date: 02/28/13 On 03/02/18 @ 10:27 Mickie Figueroa Breach HPI NOB - NEEDED SEEN THIS WEEK PER IN [place]: Details: JESUS HOOD is a 33 year old who presents for New OB visit. OB Visit NATALIE Calculator Estimated Delivery Date 10/04/18 Based on LMP (certain) 12/28/17 Current WG 9w 6d Number 1 Comments: CRL 11.5 mm 7w3d natalie 09/30/18 consistent with LMP fht 144 Initial Weight: Not Recorded Date Weight BP Urine PrFHR FuHt Pres MoCTX DilationFetal StVisit NoProviderComments E ot v te GA G Effac lucose ed Visit Notes Visit Date: 03/02/18 no vb cramping Yi Patton MD on 03/02/18 Menstrual History Last Menstral Period: 12/28/17 Reported LMP: definite Normal amount/duration: Yes On hormonal BC at conception: No hCG+: 02/05/18 Antepartum Record Genetic Screening: Congenital Heart Defect: Other, Neural Tube Defect: Other, Hemoglobinopathy Or Carrier: Patient (Father, sister and patient Factor V Leiden), Cystic Fibrosis: Other, Chromosome Abnormality: Other, Saúl-Sachs: Other, Hemophilia: Other, Intellectual Disability/Autism: Other, Recurrent Loss/Stillbirth: Patient (SAB X 2), Other Structural Defect: Other, Other Genetic Disease: Other, Maternal Metabolic Disorder: Other Infection History: Live with someone with TB or Exposed to TB: No, Patient or Partner has history of Genital Herpes: No, Rash or Viral illness since last mentrual period: No, Prior GBS-Infected child: No, History of STD: No, HIV Infection: No, History of Hepatitis: No, Recent travel outside of [place]: No, Concern for Hep exposure: No, Varicella immune: No (unsure) Medical History Medical History: Positive: Hypertension (on labetalol), Operations/hospitalizations (c section), Negative: Diabetes, Heart disease, Auto-immune disorder, Kidney disease/UTI, Neurologic/epilepsy, Psychiatric, Depression/ depression, Hepatitis/liver disease, Varicosities/phlebitis, Thyroid dysfunction, Trauma/domestic violence, History of blood transfusions, D (Rh) Sensitized, Pulmonary (e.g.,TB,Asthma), Seasonal allergies, Drug/latex allergies/reactions, Breast, Servicen[employer] Administrator surgery, Anesthetic complications, History of abnormal pap, Uterine anomaly/ricardo, Infertility, Anti-retroviral treatment, Relevant family history, Other ROS Const Reports as per HPI Card Denies chest pain, Denies shortness of breath Resp Denies shortness of breath GI Denies change in stools Denies difficulty urinating, Denies abnormal vaginal bleeding, Denies vaginal odor, Denies vaginal itching, Denies vaginal discharge Assessment AND Plan Problems 1. History of section Z98.891 2. Hypertension affecting in first trimester O16.1 labetalol, check baseline labs 3. Supervision of high risk in first trimester O NATALIE 10/04/18 PC Ashley Edgar 4. Factor V Leiden D68.51 discussed risks of DVT in - current recommendation for exp management and consider anticoagulation PP Plan - Yi Patton MD Patient oriented to practice and discussed care expectations and screenings. ACOG book offered to patient. Discussed routine and specially indicated labs if needed- patient consents to testing. see problem list details for plan information. Genetic screening including carrier screenings, sequential screening, and NIPT screening offered to patient and patient chose: considering Orders Orders: Coding Level of Care Code Off vis,new,level 4 Diagnoses History of section Z98.891 Hypertension affecting in first trimester O16.1 Trimester: first trimester Supervision of high risk in first trimester O Trimester: first trimester Factor V Leiden D68.51 02/17/18 2157 <Electronically signed by Yi Patton MD> Date Yi Patton MD 03/07/18 1306<Electronically signed by Cynthia SANTANA> Cosigner Signature: Date (if applicable) Cynthia Coleman CC: Observed: 03/02/2018 Status: F Source: [place] CULTURE, URINE 5:11 PM [facility] REPOSITORY Urine Culture ORGANISM 1: Mixed Gram Positive Organisms [place] Count 11,000-25,000 MIX CULTURE Mixed contaminants. Submit a new specimen if indicated. Performed By: #### M100.0650 #### [facility] [address] [place], [address] SILK CONDITIONER OFFICE VISIT Observed: 03/02/2018 Status: F Source: [place] REPORT 10:42 AM [facility] REPOSITORY [facility] [address] [place] [address] OFFICE VISIT Date of Service: 03/02/18 MR#: [id number] Acct: [id number] Name: JESUS HOOD Rep #: [id number] : 1985 Provider: Yi Patton MD Age/Sex: 33/F Location: [facility] Status: Signed Intake Vital Signs03/02/18 Height 5 ft 7 in 03/02/18 Weight: 236 lb 4 oz 03/02/18 Body Mass Index (BMI) 37.0 03/02/18 Blood Pressure 132/87 Intake Visit Reasons: [place] check heartbeat Desulfurizer Machine Required: No Accompanied by: Is patient in pain?: No Allergies No Known Allergies Allergy (Verified 03/02/18 10:20) Medications labetalol 300 mg tablet 300 mg PO BID 02/14/18 [History Confirmed 03/02/18] vitamin,calcium,eaeocgxe-uvkw-qrjkz acid tablet 1 tab PO QDAY 02/14/18 [History Confirmed 03/02/18] Last Menstral Period: 12/28/17 Zika: Zika virus screening: Negative : No PFSH PFSH Medical History Hypertension (Chronic) Surgical History delivery delivered (Acute) Family History Mother Hypertension Father CVA (cerebral vascular accident) Factor 5 Leiden mutation, heterozygous Social History Smoking Status: Never smoker alcohol intake: never substance use type: does not use caffeine: Yes what type of physical activity do you participate in: walking seatbelt use: always do you feel safe at home: Yes 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 DateName GA/Weeks Outcome Route Bth WeighInfant GeLabor LgtAnesthesiDel LocatProvider FOB t n h a n Delivery Date: 02/28/13 On 03/02/18 @ 10:27 Mickie Figueroa Breach HPI [place] check heartbeat: Details: JESUS HOOD is a 33 year old who presents for routine OB visit. OB Visit NATALIE Calculator Estimated Delivery Date 10/04/18 Based on LMP (certain) 12/28/17 Current WG 9w 1d Number 1 Initial Weight: Not Recorded Date Weight BP Urine PrFHR FuHt Pres MoCTX DilationFetal StVisit NoProviderComments E ot v te GA G Effac lucose ed Visit Notes Visit Date: 03/02/18 no vb cramping Yi Patton MD on 03/02/18 Diagnostics Diagnostics Labs Chlam trachomat DNA PCR Negative (Negative) 02/14/18 N.gonorrhoeae DNA (PCR) Negative (Negative) 02/14/18 Details: HIV: Urine Culture: Sequential Screen: NIPT Screen: Results [id number] Office Urine Glucose Negative Last Edit by Mickie Figueroa on 03/02/18 10:30 Office Urine Protein Negative Last Edit by Mickie Figueroa on 03/02/18 10:30 Assessment AND Plan Problems 1. History of delivery Z98.891 2. Factor V Leiden D68.51 discussed risks of DVT in - current recommendation for exp management and consider anticoagulation PP 3. Supervision of high risk in first trimester O09.91 NATALIE 10/04/18 PC Stanleyer Destinee 4. Hypertension affecting in first trimester O16.1 labetalol, check baseline labs Plan ACOG trimester education reviewed and updated. see problem list details for updated plan management information and see below for orders placed at this visit. GA appropriate handout given. Orders Orders: Coding Level of Care Code OB Routine Diagnoses History of delivery Z98.891 Factor V Leiden D68.51 Supervision of high risk in first trimester O09.91 Trimester: first trimester Hypertension affecting in first trimester O16.1 Trimester: first trimester 03/02/18 1042 <Electronically signed by Yi Patton MD> Date Yi Patton MD Cosigner Signature: Date (if applicable) CC: CT/NG [facility] BY PCR Collected: 02/14/2018 Status: F Source: [place] 4:22 PM [facility] REPOSITORY TYPE CODE TESTS RESULT OUT OF RANGE REFERENCE UNITS LAB L8200.2100 Negative Normal Chlam Negative Trac PCR LAB L8200.2200 Negative Normal NG by Negative PCR Performed By: #### L8200.2000 #### [facility] [address] [place], [place], [address] ALLERGIES ALLERGIES DATE TYPE / CODE NAME / CODE REACTION SEVERITY SOURCE 06/22/[address] No Known [address] [facility] Allergy/4160 Allergies/F00 [facility] 33162(SNOMED [id number](RXNOR Repository CT) M) ENCOUNTERS ENCOUNTERS ADMIT/DISCHARGE ACCOUNT ADMITTING ENCOUNTER LOCATION SOURCE NUMBER CLASS 07/03/2018 [id number] Ambulatory BMSBuilding:B [place] 6 [place] Repository 07/03/2018 [id number] Ambulatory [place] 2 [facility] ing:LAB Repository 06/22/2018 [id number] Ambulatory [place] [facility] ing:[facility] Repository 06/22/2018/ [id number] Ambulatory BMSBuilding:B [place] 8 9 [facility] Repository 05/25/2018/ [id number] Ambulatory BMSBuilding:B [place] 8 8 [facility] Repository 05/11/2018 [id number] Ambulatory [place] [facility] ing:US Repository 04/25/2018 [id number] Ambulatory [place] 4 [facility] ing:[facility] Repository 04/25/2018/ [id number] Ambulatory BMSBuilding:B [place] 8 7 [place].[facility] Repository 04/11/2018 [id number] Ambulatory [place] [facility] ing:LAB Repository 04/05/2018/ [id number] Ambulatory BMSBuilding:B [place] 8 4 [facility] Repository 03/02/2018 [id number] Ambulatory [place] 3 [facility] ing:[facility] Repository 03/02/2018/ [id number] Ambulatory BMSBuilding:B [place] 8 2 [facility] Repository 02/14/2018 [id number] Ambulatory [place] [facility] ing:[facility] Repository 02/14/2018/ [id number] Ambulatory BMSBuilding:B [place] 8 1 [facility] Repository PAYERS PAYERS ENCOUNTER GUARANTOR PAYER SUBSCRIBER SOURCE 07/03/2018 JESUS Andujar Primary JESUS Han [id number] Insurance:MEDICAL ALEXANDERDOB: [facility] [id number] Number: Repository [id number]: [phone] [id number] [phone] () Date:[id number] [address]FI: 07/03/2018 Secondary NOT GIVENUNK [place] Insurance:SELF PAY [facility] [facility]: Effective Repository Date:2018-07-03 07/03/2018 JESUS Con Primary JESUS Han [id number] Insurance:MEDICAL ALEXANDERDOB: [facility] 1980[place] Number: Repository [id number]: [phone] [id number] [phone] () Date:4240-06-95[address] [place] [address]BW: 07/03/2018 Secondary NOT GIVENUNK [place] Insurance:SELF PAY [facility] Number: Effective Repository Date:2018-07-03 06/22/2018 JESUS Han [id number] Insurance:MEDICAL ALEXANDERDOB: [facility] 3437[place]48-77[place]FD[place] Number: Repository [id number]: 330 [id number] [phone] (HP) Date:3757-31-94MF [address] [address]AR: 06/22/2018 Secondary NOT GIVENUNK [place] Insurance:SELF PAY [facility] Number: Effective Repository Date:2018-06-22 06/22/2018 JESUS Han [id number] Insurance:MEDICAL ALEXANDERDOB: [facility] 2726[place] Number: Repository [id number]: 330 [id number] [phone] (HP) Date:5578-22-84OC [address] [address]LW: 06/22/2018 Secondary NOT GIVENUNK [place] Insurance:SELF PAY [facility] Number: Effective Repository Date:2018-06-18 05/25/2018 JESUS Han [id number] Insurance:MEDICAL ALEXANDERDOB: [facility] 3527[place] Number: Repository [id number]: [phone] [id number] [phone] (HP) Date:4999-07-94AZ [address] [address]RS: 05/25/2018 Secondary NOT GIVENUNK [place] Insurance:SELF PAY [facility] Number: Effective Repository Date:2018-05-25 05/11/2018 JESUS Han [id number] Insurance:MEDICAL ALEXANDERDOB: [facility] 0013[place] Number: Repository [id number]: 330 [id number] [phone] (HP) Date:2748-05-86ZG [address] [place] [address]QZ: 05/11/2018 Secondary NOT GIVENUNK [place] Insurance:SELF PAY [facility] Number: Effective Repository Date:2018-04-06 04/25/2018 JESUS Andujar [facility] JESUS Han [id number] Insurance:MEDICAL ALEXANDERDOB: [facility] [place] Number: Repository [id number]: 330 [id number] [phone] (HP) Date:2202-14-12LG [address] [address]WT: 04/25/2018 Secondary NOT GIVENUNK [place] Insurance:SELF PAY [facility] Number: Effective Repository Date:2018-04-25 04/25/2018 JESUS nAdujar [facility] JESUS Han [id number] Insurance:MEDICAL ALEXANDERDOB: [facility] 1451-23-80[place] Number: Repository [id number]: 330 [id number] [phone] (HP) Date:5263-56-79GN [address] [address]UF: 04/25/2018 Secondary NOT GIVENUNK [place] Insurance:SELF PAY [facility] Number: Effective Repository Date:2018-04-25 04/11/2018 JESUS Andujar [facility] JESUS Han [id number] Insurance:MEDICAL ALEXANDERDOB: [facility] [id number] Number: Repository [id number]: [phone] [id number] [phone] (HP) Date:8690-68-86GP [address] [place] [address]SI: 04/11/2018 Secondary NOT GIVENUNK [place] Insurance:SELF PAY [facility] Number: Effective Repository Date:2018-04-11 04/05/2018 JESUS Andujar [facility] JESUS Han [id number] Insurance:MEDICAL ALEXANDERDOB: [facility] 7726[place] Number[place] Repository [id number]: ([phone] [id number] [phone] (HP) Date:2860-51-16HX [address] [address]XQ: 04/05/2018 Secondary NOT GIVENUNK [place] Insurance:SELF PAY [facility] Number: Effective Repository Date:2018-04-02 03/02/2018 JESUS Andujar Primary NOT GIVENUNK [place] [id number] Insurance:SELF PAY [place] Number: Effective Repository [id number]: 330) Date:2018-03-02 [phone] () 03/02/2018 JESUS Andujar [facility] JESUS Han [id number] Insurance:ANTHEMPolic ALEXANDERDOB: Community [place] y Number: [id number] [id number] Repository [id number]: (330) Date:5707-53-03AF [phone] () [id number] [place] [address]VF: 03/02/2018 Secondary NOT GIVENUNK [place] Insurance:SELF PAY [facility] Number: Effective Repository Date:2018-03-02 02/14/2018 JESUS Andujar [facility] JESUS Han [id number] Insurance:ANTHEMPolic ALEXANDERDOB: Community [place] y Number: [id number] [id number] Repository [id number]: ([phone]) ve Date:7290-18-45FY [phone] () [address]MQJRW[place], [place] [address]SA: 02/14/2018 Secondary NOT GIVENUNK [place] Insurance:SELF PAY [facility] Number: Effective Repository Date:2018-02-14 02/14/2018 JESUS Andujar Primary JESUS Han [id number] Insurance:BRIT KEITHB: Community [facility]IND [facility] [id number] Number: Repository [id number]: ([phone]) [id number] [phone] () Date:2710-91-56NK [address]DDGIXDQ, [place] [address]CS: 02/14/2018 Secondary NOT GIVENMICHEL [place] Insurance:SELF PAY [facility] Number: Effective Repository Date:2018-02-14
== END ==
PROVIDERS: Family Provider Family Medicine; PCP Family Medicine; Referring Provider Obstetrics & Gynecology; Visit Provider Obstetrics & Gynecology
DX: R80.9 Proteinuria, unspecified (principal)
CPT/HCPCS: 82570; 84156

== ENCOUNTER → 2018-07-03 16:10 | Outpatient (CLI) | payer OTHER, SELFPAY ==
[2018-06-22 16:15] VITALS: BMI 37.7
--- NOTE | 2018-07-03 16:28 | EKG12_ITS ---
Test Reason : HIGH BP Blood Pressure : / mmHG Vent. Rate : 095 BPM Atrial Rate : 095 BPM P-R Int : 156 ms QRS Dur : 080 ms QT Int : 354 ms P-R-T Axes : 043 008 018 degrees QTc Int : 444 ms Normal sinus rhythm Low voltage QRS Borderline ECG Confirmed by LIANA JOHNSON, POONAM ([id number]), movie editor GRACIE ROUSSEAU ([id number]) on 07/06/2018 10:51:07 AM Referred By: Yi Patton Confirmed By:POONAM GAINES MD
[2018-07-03 16:58] LABS: Potassium 3.3 mmol/L (3.5-5.1)
--- OUTSIDE RECORDS SUMMARY | 2018-08-19 23:26 | XMS RPT_ITS ---
:1985 Author Organization OHIP Support Name Relationship Address Phone DESTINEE HOOD Unavailable [address] + [place] [address] TRILOCSCH Unavailable [address] + [place] [address] [place], YRIS Unavailable [address] + [place] [address] DESTINEE HOOD Unavailable Unavailable + DESTINEE HOOD Unavailable [address] + [place] [address] TRILOCSCH Unavailable [address] + [place] [address] [place], YRIS Unavailable [address] + [place] [address] DESTINEE HOOD Unavailable [address] + [place] [address] TRILOCSCH Unavailable [address] + [place] [address] [place], YRIS Unavailable [address] + [place] [address] DESTINEE HOOD Unavailable [address] + [place] [address] TRILOCSCH Unavailable [address] + [place] [address] [place], YRIS Unavailable [address] + [place] [address] DESTINEE HOOD Unavailable [address] + [place] [address] TRILOCSCH Unavailable [address] + [place] [address] [place], YRIS Unavailable 0 + [place] [address] RUTH DESTINEE Unavailable [address] + [place] [address] TRILOCSCH Unavailable [address] + [place] [address] [place], YRIS Unavailable 0 + [place] [address] RUTH DESTINEE Unavailable [address] + [place] [address] TRILOCSCH Unavailable [address] + [place] [address] [place], YRIS Unavailable Unavailable + [place] [address] RUTH DESTINEE Unavailable [address] + [place] [address] TRILOCSCH Unavailable [address] + [place] [address] [place], YRIS Unavailable Unavailable + [place] [address] RUTH DESTINEE Unavailable [address] + [place] [address] TRILOCSCH Unavailable [address] + [place] [address] [place], YRIS Unavailable Unavailable + [place] [address] RUTH DESTINEE Unavailable [address] + [place] [address] TRILOCSCH Unavailable [address] + [place] [address] [place], YRIS Unavailable Unavailable + [place] [address] RUTH DESTINEE Unavailable [address] + [place] [address] TRILOCSCH Unavailable [address] + [place] [address] [place], YRIS Unavailable 1 + [place] [address] RUTH DESTINEE Unavailable [address] + [place] [address] TRILOCSCH Unavailable [address] + [place] [address] [place], YRIS Unavailable 1 + [place] [address] DESTINEE HOOD Unavailable [address] + [place] [address] TRILOCSCH Unavailable [address] + [place] [address] [place], YRIS Unavailable Unavailable + [place] [address] DESTINEE HOOD Unavailable [address] + [place] [address] TRILOCSCH Unavailable [address] + [place] [address] [place], YRIS Unavailable [address] + [place] [address] DESTINEE HOOD Unavailable [address] + [place] [address] [facility] Unavailable [address] + [place] [address] [place], YRIS Unavailable [address] + [place] [address] DESTINEE HOOD Unavailable [address] + [place] [address] [facility] Unavailable [address] + [place] [address] [place], YRIS Unavailable [address] + [place] [address] DESTINEE HOOD Unavailable [address] + [place] [address] [facility] Unavailable [address] + [place] [address] [place], YRIS Unavailable [address] + [place] [address] DESTINEE HOOD Unavailable [address] + [place] [address] [facility] Unavailable [address] + [place] [address] [place], YRIS Unavailable [address] + [place] [address] Destinee Hood Unavailable [address] + [place] [address] [facility] Unavailable . +[place] [address] [place], YRIS Unavailable [address] + [place] [address] Destinee Hood Unavailable [address] + [place] [address] [facility] Unavailable . +[place] [address] [place], YRIS Unavailable [address] + [place] [address] DESTINEE HOOD Unavailable [address] + [place] [address] [facility] Unavailable [address] + [place] [address] [place], YRIS Unavailable [address] + [place] [address] Care Team Providers Name Role Phone YOVANI BEVERLY Attending Unavailable YI LANDRY Referring Unavailable NO PRIMARY CAREMD Primary Care Unavailable Yi Landry Attending Unavailable LeandroonyYi Referring Unavailable Omar, Felipe Primary Care Unavailable Rome Gaines Attending Unavailable LeandroonyYi Referring Unavailable Omar, Felipe Primary Care Unavailable LeandroonyYi Consulting Unavailable Cynthia Coleman Attending Unavailable Omar, Felipe Referring Unavailable MarcanthonyYi Attending Unavailable Omar, Felipe Primary Care Unavailable MarcanthonyStefanon Referring Unavailable MarcanthonyYi Attending Unavailable MarkanthYi delgado Referring Unavailable Primay Care Physicia, No Primary Care Unavailable Yi Landry Attending Unavailable Omar, Felipe Referring Unavailable MarcanthonyYi Attending Unavailable Markanthony, Yi Referring Unavailable Primay Care Physicia, No Primary Care Unavailable LeandroonyYi Attending Unavailable Omar, Felipe Referring Unavailable MarcanthonyYi Attending Unavailable Omar, Felipe Referring Unavailable Rome Gaines Attending Unavailable Abdi, Yi Referring Unavailable MarcanthonyYi Attending Unavailable Omar, Felipe Primary Care Unavailable Marcanthony, Yi Referring Unavailable Marcanthony, Yi Attending Unavailable Omar, Felipe Referring Unavailable Marcanthony, Yi Attending Unavailable Marcanthony, Yi Referring Unavailable Omar, Felipe Primary Care Unavailable Marcanthony, Yi Attending Unavailable Marcanthony, Yi Referring Unavailable Omar, Felipe Primary Care Unavailable Ireland, Cynthia Attending Unavailable Omar, Felipe Referring Unavailable Marcanthony, Yi Attending Unavailable Marcanthony, Yi Referring Unavailable Primay Care Physicia, No Primary Care Unavailable Marcanthony, Yi Attending Unavailable Omar, Felipe Referring Unavailable Omar, Felipe Primary Care Unavailable Marcanthony, Yi Attending Unavailable Omar, Felipe Primary Care Unavailable Marcanthony, Yi Referring Unavailable Marcanthony, Yi Attending Unavailable Omar, Felipe Referring Unavailable Omar, Felipe Primary Care Unavailable Marcanthony, Yi Attending Unavailable Omar, Felipe Referring Unavailable Omar, Felipe Primary Care Unavailable Virginia, Cynthia Attending Unavailable Ireland, Cynthia Referring Unavailable Primay Care Physicia, No Primary Care Unavailable PROBLEMS PROBLEMS DATE TYPE CONDITION / CODE ATTENDING STATUS SOURCE 08/03/2018 Unknown N61.0 - Mastitis Marcanthony, Active [place] without abscess / [facility] N61.0(ICD-10) Hospital Repository 08/03/2018 Unknown E87.6 - Marcanthony, Active [place] Hypokalemia / [facility] E87.6(ICD-10) Hospital Repository 08/03/2018 Unknown Z3A.29 - 29 weeks Marcanthony, Active [place] gestation of [facility] / Hospital Z3A.29(ICD-10) Repository 08/03/2018 Unknown Z98.891 - History Marcanthony, Active [place] of uterine scar [facility] from previous Hospital surgery / Repository Z98.891(ICD-10) 08/03/2018 Unknown O16.3 - Marcanthony, Active [place] Unspecified [facility] maternal Hospital hypertension, Repository third trimester / O16.3(ICD-10) 08/03/2018 Unknown O09.93 - Marcanthony, Active [place] Supervision of [facility] high risk Hospital , Repository unspecified, third trimester / O09.93(ICD-10) 08/03/2018 Unknown 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, 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 / Hospital D68.51(ICD-10) Repository 08/04/2018 Unknown O16.9 - Marcanthony, Active [place] Unspecified [facility] Hospital hypertension, Repository unspecified trimester / O16.9(ICD-10) 08/04/2018 Unknown O99.810 - Abnormal Marcanthony, Active [place] glucose [facility] complicating Hospital / Repository O99.810(ICD-10) 07/16/2018 Unknown O16.2 - Rome Gaines Active [place] Unspecified [facility] Hospital hypertension, Repository second trimester / O16.2(ICD-10) 06/23/2018 Unknown R80.9 - Marcanthony, Active [place] Proteinuria, [facility] unspecified / Hospital R80.9(ICD-10) Repository 06/22/2018 Unknown Z34.90 - Encounter Marcanthony, Active [place] for supervision of [facility] normal , Hospital unspecified, Repository unspecified trimester / Z34.90(ICD-10) 06/22/2018 Unknown O09.92 - Marcanthony, Active [place] Supervision of [facility] high risk Hospital , Repository unspecified, second trimester / O09.92(ICD-10) 05/25/2018 Unknown Z23 - Encounter Marcanthony, Active [place] for immunization / [facility] Z23(ICD-10) Hospital Repository 05/25/2018 Unknown Z3A.21 - 21 weeks Marcanthony, Active [place] gestation of [facility] / Hospital Z3A.21(ICD-10) Repository 04/25/2018 Unknown I10 - Essential Ireland, Cynthia Active [place] (primary) [facility] hypertension / Hospital I10(ICD-10) Repository 03/06/2018 Unknown O09.90 - Marcanthony, Active [place] Supervision of [facility] high risk Hospital , Repository unspecified, unspecified trimester / O09.90(ICD-10) 03/19/2018 Unknown O09.91 - Marcanthony, Active [place] Supervision of [facility] risk Hospital , Repository unspecified, first trimester / O09.91(ICD-10) 03/19/2018 Unknown O16.1 - Marcanthony, Active [place] Unspecified [facility] hypertension, Repository first trimester / O16.1(ICD-10) PROCEDURES PROCEDURES No Procedure Records FoundRESULTS RESULTS PROTEIN+CREATININE Collected: Status: F Source: [place] RATIO,URINE 08/03/2018 5:59 PM [facility] REPOSITORY TYPE CODE TESTS RESULT OUT OF RANGE REFERENCE UNITS LAB L501.1200 NO RANGE EST. mg/dL Normal UR CREAT 285.00 LAB L501.1930 <11.9 mg/dL High 35.5 PROTEIN,UR.R AN. LAB L501.1940 0-200 mg/g CRE Normal PROT:CRE 125 RATIO Performed By: #### L501.0900 #### [facility] [address] [place], [address] CORPORATE TRAFFIC MANAGER OFFICE VISIT Observed: 08/03/2018 Status: F Source: [place] REPORT 4:46 PM [facility] REPOSITORY [facility] [address] [place] [address] OFFICE VISIT Date of Service: 08/03/18 MR#: [id number] Acct: [id number] Name: JESUS HOOD Rep #: [id number] : 1985 Provider: Yi Landry MD Age/Sex: 33/F [place] [facility] [place]: Signed Intake Vital Signs08/03/18 Blood Pressure 140/90 H 08/03/18 Height 5 ft 7 in 08/03/18 Weight: 239 lb 08/03/18 Body Mass Index (BMI) 37.4 Intake Visit Reasons: EST OB 32 WEEKS Chief Complaint: est ob Gage Maker Required: No Is patient in pain?: No Allergies No Known Allergies Allergy (Verified 08/03/18 16:24) Medications vitamin,calcium,niatvpjz-qzkm-qprcs acid tablet 1 tab PO QDAY 02/14/18 [History Confirmed 07/23/18] potassium chloride ER 20 mEq tablet,extended release 40 meq PO DAILY #60 tab 04/17/18 [Rx Confirmed 07/23/18] labetalol 200 mg tablet 200 mg PO BID #180 tab 06/22/18 [Rx Confirmed 07/23/18] Last Menstral Period: 12/28/17 Zika: Zika virus [...] 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 DateName GA/Weeks Outcome Route Bth WeighInfant GeLabor LgtAnesthesiDel LocatProvider FOB t n h a n Delivery Date: 02/28/13 On 03/02/18 @ 10:27 Mickei Figueroa Breach HPI EST OB 32 WEEKS: Details: JESUS HOOD is a 33 year old who presents for routine OB visit. OB Visit NATALIE Calculator Estimated Delivery Date 10/04/18 Based on LMP (certain) 12/28/17 Current WG 31w 1d Number 1 Expected Delivery Route/Plan TOLAC - uptodate education given Specific Issue/Plans flu vaccine: given tdap vaccine: [] rhogam: [] LARC form signed: [] labor support person: Destinee pain management: [] cut cord/dad catch: [] : [] PP control planned: [] special requests: [] Initial Weight: 235 lb Date Weight BP Urine PrFHR FuHt Pres MoCTX DilationFetal StVisit NoProviderComments E ot v te GA G Effac lucose ed Visit Notes Visit Date: 08/03/18 no vb lof good fm no regula rctx 3 hr gtt WNL, imaging WNL or breast, mastitis resolving. Yi Landry MD on 08/03/18 Visit Date: 07/23/18 right breast erythematous, firm, warm to touch and with edema. Recheck Dr. Landry. Cynthia Coleman NP-C on 07/23/18 Visit Date: 07/20/18 no vb lof good fm no regular ctx will do cbc and glucola this week. check potassium level again Yi Landry MD on 07/20/18 Visit Date: 06/22/18 had mastitis this weekend. resolved with antibtiotics. bps well controlled. Yi Landry MD on 06/22/18 Visit Date: 05/25/18 no vb lof good fm n oregular ctx. Yi Landry MD on 05/25/18 Visit Date: 04/25/18 no VB, LOF. Difficulty swallowing Potassium Cynthia Coleman NP-Elida on 04/25/18 Visit Date: 04/05/18 no vb lof no cramping Yi Landry MD on 04/05/18 Visit Date: 03/02/18 no vb cramping Yi Landry MD on 03/02/18 Diagnostics Diagnostics Labs Blood Type O POSITIVE 07/26/18 Antibody Screen NEGATIVE 07/26/18 Hct 34.5 % (37-47) L 07/26/18 Hgb 11.5 g/dl (12.0-15.0) L 07/26/18 Obstetrics Ultrasound 05/11/18 Chlam trachomat DNA PCR Negative (Negative) 04/25/18 N.gonorrhoeae DNA (PCR) Negative (Negative) 04/25/18 Glucose 1 Hr 50 gm 140 mg/dL (70-140) 07/26/18 Details: HIV: Urine Culture: Sequential Screen: NIPT Screen: Results [id number] Office Urine Glucose Negative Last Edit by Leann Robin on 08/03/18 16:39 Office Urine Protein 1+ Last Edit by Leann Robin on 08/03/18 16:39 Assessment AND Plan Problems 1. Abnormal glucose affecting O99.810 2. Mastitis of right breast unrelated to of N61.0 2 episodes: keflex AND dicloxicillin given 3. Low serum potassium E87.6 04/25/18 Took short course potassium. Recheck next visit 4. 29 weeks gestation of Z3A.29 5. History of section Z98.891 discussed . uptodate eduation, 6. Hypertension affecting in third trimester O16.3 labetalol, check baseline labs normal EKG 7. Supervision of high risk in third trimester O09.93 PRR NATALIE 10/04/18 PC Stanleyer Destinee 8. 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 ACOG trimester education reviewed and updated. see problem list details for updated plan management information and see below for orders placed at this visit. GA appropriate handout given. 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 Y TYPE CODE TESTS RESULT OUT OF RANGE REFERENCE UNITS LAB L501.0660 <190 mg/dL Normal GLU GTT- 159 1HR LAB L501.0650 <105 mg/dL Normal GLU 86 GTT-FASTING Result Comment: GLUCOSE TOLERANCE TEST FOR Reference Interval GESTATIONAL DIABETES Fasting <105 mg/dL 1 hour <190 mg/dl 2 hour <165 mg/dl 3 hour <145 mg/dl LAB L501.0670 <165 mg/dL Normal GLU GTT- 2HR 144 LAB L501.0680 <145 L Normal GLU GTT- 3HR 98 Performed By: #### L500.4710 #### [facility] [place], [address] BREAST LIMITED Observed: 07/30/2018 Status: F Source: [place] UNILATERAL 1:13 PM [facility] REPOSITORY [facility] [address] [place] [address] Breast Limited Unilateral MR#: [id number] Acct: [id number] Name: JESUS HOOD Rep #: [id number] : 1985 F 33 From: Ambrose Cortez MD PCP: Care Physician, No Primary Status: REG CLI Study: Breast Limited Unilateral Date of Exam: 07/30/18 Exam# [id number] Ordering Dr: Cynthia Coleman CAR MANAGERUlysses STUDY: ULTRASOUND BREAST - RIGHT REASON FOR EXAM: Female, 33 years old. Palpable lump in the right breast. Redness. TECHNIQUE: Axial and longitudinal images of the RIGHT breast were performed with a high resolution ultrasound transducer. COMPARISON: Prior comparison studies are not available for review at this time. FINDINGS: RIGHT Breast: The medial half of the right breast was examined by ultrasound. There is dense fibroglandular tissue. No solid or cystic abnormality is seen. US/Breast Limited Unilateral IMPRESSION: Dense fibroglandular tissue. No sonographic abnormality is seen. ASSESSMENT CATEGORY: BIRADS Category 1: Negative. A letter regarding these results will be sent to the patient by the facility within 30 days. Electronically Signed: Ambrose Cortez MD at 15:29 EST Tel [phone], Service support , CC: CHIN Coleman; No Primary Care Physician Machine Tool Designer: Signed CBC W/DIFF, AUTOMATED Collected: 07/26/2018 Status: F Source: [place] 11:16 AM [facility] REPOSITORY TYPE CODE TESTS RESULT OUT OF RANGE REFERENCE UNITS LAB L100.1000 4.4-11.0 K/mm3 Normal WBC 9.5 LAB L100.1200 4.2-5.4 M/mm3 Low RBC 3.77 LAB L100.1300 12.0-15.0 g/dl Low HGB 11.5 LAB L100.1400 37-47 % Low HCT 34.5 LAB L100.1500 81-99 fL Normal MCV 91.5 LAB L100.1600 27.0-32.0 pg Normal MCH 30.5 LAB L100.1700 32-36 g/gl Normal MCHC 33.3 LAB L100.1810 11.6-14.6 % Normal RDW CV 13.1 LAB L100.1820 35.1-43.9 fl Normal RDW SD 42.7 LAB L100.1900 150-450 K/mm3 Normal PLT 345 LAB L100.2000 6.2-12.0 fl Normal MPV 9.4 LAB L100.2100 47-70 % High NEUT% 72.0 LAB L100.2200 19-41 % Normal LY% 19.8 LAB L100.2300 0-10 % Normal MONO% 5.1 LAB L100.2400 0-5 % Normal EO% 2.0 LAB L100.2500 0-1 % Normal BASO% 0.3 LAB L100.2550 0.0-0.9 % Normal IM GRAN % 0.800 Result Comment: IG% - Immature Granulocytes (promyelocytes, myelocytes and metamyelocytes) > 1% indicates that a LEFT SHIFT is Present. LAB L100.2620 2.0-7.7 X10 3/uL Normal Absolute Neut 6.8 LAB L100.2720 0.83-4.51 X10 3/ul Normal Absolute Lymph 1.88 Performed By: #### L100.0100 #### [facility] [address] [place], [place], [address] GLUCOSE CHALLENGE GEST Collected: 07/26/2018 Status: F Source: [place] 1H 50G 11:16 AM [facility] REPOSITORY TYPE CODE TESTS RESULT OUT OF RANGE REFERENCE UNITS LAB L501.0250 70-140 mg/dL Normal GLU GEST 140 50g 1H Performed By: #### L501.0250 #### [facility] [address] [place] [place], [address] TYPE AND SCREEN Collected: 07/26/2018 Status: F Source: [place] 11:16 AM [facility] REPOSITORY Order Comment: Reason for Type AND Screen/Red Cells: TYPE CODE TESTS RESULT OUT OF RANGE REFERENCE UNITS LAB B10.0800 O Normal BLOOD TYPE GEL POSITIVE LAB B100.4000 Normal Antibody NEGATIVE Screen Performed By: #### B101.7450 #### [facility] [address] [place], [address] CORPORATE TRAFFIC MANAGER OFFICE VISIT Observed: 07/23/2018 Status: F Source: [place] REPORT 12:53 PM [facility] REPOSITORY [facility] [address] [place] [address] OFFICE VISIT Date of Service: 07/23/18 MR#: [id number] Acct: [id number] Name: RUTHJESUS Rep #: [id number] : 1985 Provider: CHIN Coleman Age/Sex: 33/F [place] [facility] [place] Status: Signed Intake Vital Signs07/23/18 Body Mass Index (BMI) 37.7 07/23/18 Weight: 239 lb 07/23/18 Blood Pressure 118/82 H Intake Visit Reasons: 29 weeks-Tender right breast Chief Complaint: Tender R Breast Accompanied by: Spouse Is patient in pain?: No Allergies No Known Allergies Allergy (Verified 07/23/18 12:19) Medications vitamin,calcium,ucsoxcyt-hwhp-uwbaj acid tablet 1 tab PO QDAY 02/14/18 [History Confirmed 07/23/18] potassium chloride ER 20 mEq tablet,extended release 40 meq PO DAILY #60 tab 04/17/18 [Rx Confirmed 07/23/18] labetalol 200 mg tablet 200 mg PO BID #180 tab 06/22/18 [Rx Confirmed 07/23/18] dicloxacillin 500 mg capsule 500 mg PO Q6H 10 Days #40 cap 07/23/18 [Rx Confirmed 07/23/18] Last Menstral Period: 12/28/17 Zika: Zika virus [...] 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 DateName GA/Weeks Outcome Route Bth WeighInfant GeLabor LgtAnesthesiDel LocatProvider FOB t n h a n Delivery Date: 02/28/13 On 03/02/18 @ 10:27 Mickie Figueroa Breach HPI 29 weeks-Tender right breast: Details: JESUS HOOD is a 33 year old who presents for work in for tender and red right breast since last night. Denies fever. Had same issue 4 weeks ago and resolved within 24 hours of starting Keflex. States took entire 7 days of treatment OB Visit NATALIE Calculator Estimated Delivery Date 10/04/18 Based on LMP (certain) 12/28/17 Current WG 29w 4d Number 1 Expected Delivery Route/Plan TOLAC - uptodate education given Specific Issue/Plans flu vaccine: given tdap vaccine: [] rhogam: [] LARC form signed: [] labor support person: Destinee pain management: [] cut cord/dad catch: [] : [] PP control planned: [] special requests: [] Initial Weight: 235 lb Date Weight BP Urine PrFHR FuHt Pres MoCTX DilationFetal StVisit NoProviderComments E ot v te [place] G Effac lucose ed Visit Notes Visit Date: 07/23/18 right breast erythematous, firm, warm to touch and with edema. Recheck Dr. Landry. Cynthia Coleman, CHIN-C on 07/23/18 Visit Date: 07/20/18 no vb lof good fm no regular ctx will do cbc and glucola this week. check potassium level again Yi Landry MD on 07/20/18 Visit Date: 06/22/18 had mastitis this weekend. resolved with antibtiotics. bps well controlled. Yi Landry MD on 06/22/18 Visit Date: 05/25/18 no vb lof good fm n oregular ctx. Yi Landry MD on 05/25/18 Visit Date: 04/25/18 no VB, LOF. Difficulty swallowing Potassium ESTHER Benavides on 04/25/18 Visit Date: 04/05/18 no vb lof no cramping Yi Landry MD on 04/05/18 Visit Date: 03/02/18 no vb cramping Yi Landry MD on 03/02/18 Diagnostics Diagnostics Labs Blood [...] HIV: Urine Culture: Sequential Screen: NIPT Screen: Assessment AND Plan Problems 1. Mastitis of right breast unrelated to of N61.0 2 episodes: keflex AND dicloxicillin given 2. 29 weeks gestation of Z3A.29 3. Supervision of high risk in third trimester O09.93 *urine protein/cr ratio NATALIE 10/04/18 MELISSA Ramirez Destinee 4. Hypertension affecting in third trimester O16.3 labetalol, check baseline labs normal EKG Plan Dicloxicillin Rx sent Tylenol, ice packs for comfort Bilateral diagnosti mammogram and ultrasound in one week. May consider surgical consult. Orders Orders: Medications New: Coding Level of Care Code Off vis,est,level 3 Diagnoses Mastitis of right breast unrelated to of N61.0 29 weeks gestation of Z3A.29 Weeks of gestation: 29 weeks Supervision of high risk in third trimester O09.93 Trimester: third trimester Hypertension affecting in third trimester O16.3 Trimester: third trimester 07/23/18 1253 <Electronically signed by Cynthia SANTANA> Date Cynthia Coleman NP-C Cosigner Signature: Date (if applicable) CC: CORPORATE TRAFFIC MANAGER OFFICE VISIT Observed: 07/22/2018 Status: F Source: [place] REPORT 12:59 AM [facility] REPOSITORY [facility] [address] [place] [address] OFFICE VISIT Date of Service: 07/20/18 MR#: [id number] Acct: [id number] Name: JESUS HOOD Rep #: [id number] : 1985 Provider: Yi Landry MD Age/Sex: 33/F [place] [facility] [place]: Signed Intake Vital Signs07/20/18 Body Mass Index (BMI) 37.7 07/20/18 Weight: 242 lb 2 oz 07/20/18 Blood Pressure 126/84 H Intake Visit Reasons: EST OB 30 WEEKS Chief Complaint: Est OB Accompanied by: Self Is patient in pain?: No Allergies No Known Allergies Allergy (Verified 07/20/18 16:22) Medications vitamin,calcium,jwkvfgfq-cwui-mfivy acid tablet 1 tab PO QDAY 02/14/18 [History Confirmed 07/20/18] potassium chloride ER 20 mEq tablet,extended release 40 meq PO DAILY #60 tab 04/17/18 [Rx Confirmed 07/20/18] labetalol 200 mg tablet 200 mg PO BID #180 tab 06/22/18 [Rx Confirmed 07/20/18] Last Menstral Period: 12/28/17 Zika: Zika virus [...] 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 DateName GA/Weeks Outcome Route Bth WeighInfant GeLabor LgtAnesthesiDel LocatProvider FOB t n h a n Delivery Date: 02/28/13 On 03/02/18 @ 10:27 Mickie Figueroa Breach HPI EST OB 30 WEEKS: Details: JESUS HOOD is a 33 year old who presents for routine OB visit. OB Visit NATALIE Calculator Estimated Delivery Date 10/04/18 Based on LMP (certain) 12/28/17 Current WG 29w 2d Number 1 Expected Delivery Route/Plan TOLAC - uptodate education given Specific Issue/Plans flu vaccine: given tdap vaccine: [] rhogam: [] LARC form signed: [] labor support person: Destinee pain management: [] cut cord/dad catch: [] : [] PP control planned: [] special requests: [] Initial Weight: 235 lb Date Weight BP Urine PrFHR FuHt Pres MoCTX DilationFetal StVisit NoProviderComments E ot v te GA G Effac lucose ed Visit Notes Visit Date: 07/20/18 no vb lof good fm no regular ctx will do cbc and glucola this week. check potassium level again Yi Landry MD on 07/20/18 Visit Date: 06/22/18 had mastitis this weekend. resolved with antibtiotics. bps well controlled. Yi Landry MD on 06/22/18 Visit Date: 05/25/18 no vb lof good fm n oregular ctx. Yi Landry MD on 05/25/18 Visit Date: 04/25/18 no VB, LOF. Difficulty swallowing Potassium Cynthia Coleman NP-C on 04/25/18 Visit Date: 04/05/18 no vb lof no cramping Yi Landry MD on 04/05/18 Visit Date: 03/02/18 no vb cramping Yi Landry MD on 03/02/18 Diagnostics Diagnostics Labs Blood [...] Office Urine Glucose Negative Last Edit by Karin Cameron on 07/20/18 16:27 Office Urine Protein Negative Last Edit by Karin Cameron on 07/20/18 16:27 Assessment AND Plan Problems 1. History of delivery Z98.891 discussed . uptodate eduation, 2. Low serum potassium E87.6 04/25/18 Took short course potassium. Recheck next visit 3. Hypertension affecting in third trimester O16.3 labetalol, check baseline labs normal EKG 4. 29 weeks gestation of Z3A.29 5. Factor V Leiden D68.51 discussed risks of DVT in - current recommendation for exp management and consider anticoagulation PP 6. Supervision of high risk in third trimester O09.93 *urine protein/cr ratio NATALIE 10/04/18 MELISSA Edgar Plan ACOG trimester education reviewed and updated. see problem list details for updated plan management information and see below for orders placed at this visit. [place] appropriate handout given. Orders Orders: Coding Level of Care Code OB Routine Diagnoses History of delivery Z98.891 Low serum potassium E87.6 Hypertension affecting in third trimester O16.3 Trimester: third trimester 29 weeks gestation of Z3A.29 Weeks of gestation: 29 weeks Factor V Leiden D68.51 Supervision of high risk in third trimester O09.93 Trimester: third trimester 07/22/18 0059 <Electronically signed by Yi Landry MD> Date Yi Landry MD Cosigner Signature: Date (if applicable) CC: 12 LEAD ELECTROCARDIOGRAM Observed: 07/06/2018 Status: F Source: [place] 10:51 AM [facility] REPOSITORY [facility] Services [address] [place] [address] 12 Lead EKG 07/03/18 1636 MR#: [id number] Acct: [id number] Name: JESUS HOOD Rep #: [id number] : 1985 33 From: Rome Gaines MD Attending Dr: Yi Landry MD Status: REG CLI Ordering Dr: Yi Landry MD Date: 07/03/18 Location: LAB Sex: F [...] Borderline ECG Confirmed by LIANA JOHNSON, ROME ([id number]), restaurant expeditor GRACIE ROUSSEAU ([id number]) on 07/06/2018 10:51:07 AM Referred By: Yi Landry Confirmed By:ROME GAINES MD 07/06/18 1051 Date Rome Gaines MD CC: Felipe Nelson MD; Yi Landry MD Signed POTASSIUM Collected: 07/03/2018 Status: F Source: [place] 4:23 PM [facility] REPOSITORY TYPE CODE TESTS RESULT OUT OF RANGE REFERENCE UNITS LAB L501.5600 3.5-5.1 mmol/L Low K 3.3 Performed By: #### L501.5600 #### [facility] [address] [place], [address] PROTEIN+CREATININE Collected: Status: F Source: [place] RATIO,URINE 06/22/2018 6:39 PM [facility] REPOSITORY TYPE CODE TESTS RESULT OUT OF RANGE REFERENCE UNITS LAB L501.1200 NO RANGE EST. mg/dL Normal UR CREAT 305.00 LAB L501.1930 <11.9 mg/dL High 33.5 PROTEIN,UR.R AN. LAB L501.1940 0-200 mg/g CRE Normal PROT:CRE 110 RATIO Performed By: #### L501.0900 #### [facility] [address] [place], [place], [address] CORPORATE TRAFFIC MANAGER OFFICE VISIT Observed: 06/22/2018 Status: F Source: [place] REPORT 4:57 PM [facility] REPOSITORY [facility] [address] [place] [address] OFFICE VISIT Date of Service: 06/22/18 MR#: [id number] Acct: [id number] Name: JESUS HOOD Rep #: [id number] : 1985 Provider: Yi Landry MD Age/Sex: 33/F [place] 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 bps well controlled. Yi Landry MD on 06/22/18 Visit Date: 05/25/18 no vb lof good fm n oregular ctx. Yi Landry MD on 05/25/18 Visit Date: 04/25/18 no VB, LOF. Difficulty swallowing Potassium Cynthia Coleman, CAR MANAGER-C on 04/25/18 Visit Date: 04/05/18 no vb lof no cramping Yi Landry MD on 04/05/18 Visit Date: 03/02/18 no vb cramping Yi Landry MD on 03/02/18 Diagnostics Diagnostics Labs Blood [...] *urine protein/cr ratio NATALIE 10/04/18 PC Ashley Edgar 6. Low serum potassium E87.6 04/25/18 Took [...] Supervision of high risk in second trimester O09. Trimester: second trimester Low serum potassium E87.6 06/22/18 1657 <Electronically signed by Yi Landry MD> Date Yi Landry MD Cosign Signature: Date (if applicable) CC: CORPORATE TRAFFIC MANAGER OFFICE VISIT Observed: 05/25/2018 Status: F Source: [place] REPORT 5:02 PM [facility] [address] [place] [address] OFFICE VISIT Date of Service: 05/25/18 MR#: [id number] Acct: [id number] Name: RUTHJESUS M Rep #: [id number] : 1985 Provider: Yi Landry MD Age/Sex: 33/F [place] 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 Yi Landry MD on 05/25/18 Visit Date: 04/25/18 no VB, LOF. Difficulty swallowing Potassium Cynthia Coleman NP-Elida on 04/25/18 Visit Date: 04/05/18 no vb lof no cramping Yi Landry MD on 04/05/18 Visit Date: 03/02/18 no vb cramping Yi Landry MD on 03/02/18 Diagnostics Diagnostics Labs Blood [...] Screen: NIPT Screen: Office Meds Flucelvax Quad 9870-2400 (PF) Performing Provider: Yi Landry MD Administered by: Mickie Figueroa on 05/25/18 16:44 Dose Route Admin Location Lot Number Expiration Date [employer] Supervisor 60 mcg IM right deltoid [id number] 01/20/19 54072-858-73 SEQIRUS Results [id number] Office Urine Glucose Negative [...] *urine protein/cr ratio NATALIE 10/04/18 PC Ashley Edgar 5. 21 weeks gestation of Z3A.21 Plan ACOG trimester education reviewed and updated. see problem list details for updated plan management information and see below for orders placed at this visit. [place] appropriate handout given. Orders Orders: Medications Discontinued: Flucelvax Quad 1378-4641 (PF) (flu vac qs 2018(4 yr60 mcg (0.5 mL) IM ONCE 1 [...] weeks 05/25/18 1702 <Electronically signed by Yi Landry MD> Date Yi Landry MD Cosign Signature: Date (if applicable) CC: OB ANATOMY SCAN Observed: 05/11/2018 Status: F Source: [place] 3:34 PM [facility] REPOSITORY [facility] Imaging Services [address] [place] [address] OB Anatomy Scan MR#: [id number] Acct: [id number] Name: JESUS HOOD Rep #: [id number] : 1985 F 33 From: Nathanael Harris DO PCP: Felipe Nelson MD Status: REG CLI Study: OB Anatomy Scan Date of Exam: 05/11/18 Exam# [id number] Ordering Dr: Yi Landry MD STUDY: SECOND AND THIRD TRIMESTER OBSTETRICAL [...] Nathanael Harris DO at 8:37 EDT Tel [phone], Service support , CC: Felipe Nelson MD; Yi Landry MD Machine Tool Designer: Signed PROTEIN+CREATININE Collected: Status: F Source: [place] RATIO,URINE 04/25/2018 4:09 PM [facility] REPOSITORY TYPE CODE TESTS RESULT OUT OF RANGE REFERENCE UNITS LAB L501.1200 NO RANGE EST. mg/dL Normal UR CREAT 161.00 LAB L501.1930 <11.9 mg/dL High 17.6 PROTEIN,UR.R AN. LAB L501.1940 0-200 mg/g CRE Normal PROT:CRE 109 RATIO Performed By: #### L501.0900 #### [facility] [address] [place], [address] CT/NG WCH BY PCR Collected: 04/25/2018 Status: F Source: [place] 4:09 PM [facility] REPOSITORY TYPE CODE TESTS RESULT OUT OF RANGE REFERENCE UNITS LAB L8200.2100 Negative Normal Chlam Negative Trac PCR LAB L8200.2200 Negative Normal NG by Negative PCR Performed By: #### L8200.1999, M100.0650 #### [facility] [address] [place], [address] Observed: 04/25/2018 Status: F Source: [place] CULTURE, URINE 4:09 PM [facility] REPOSITORY Urine Culture Probable skin contaminants. ORGANISM 1: Mixed Gram Positive Organisms [place] Count >100,000 Performed By: #### L8200.1999, M100.0650 #### [facility] [address] [place], [address] CORPORATE TRAFFIC MANAGER OFFICE VISIT Observed: 04/25/2018 Status: F Source: [place] REPORT 2:31 PM [facility] REPOSITORY [facility] [address] [place] [address] OFFICE VISIT Date of Service: 04/25/18 MR#: [id number] Acct: [id number] Name: JESUS HOOD Rep #: [id number] : 1985 Provider: CHIN Coleman Age/Sex: 33/F [place] 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 Hypertension affecting in first trimester O16.1 labetalol, check baseline labs 3. History of section Z98.891 4. Factor V Leiden D68.51 discussed risks of DVT in - current recommendation for exp management and consider anticoagulation PP 5. 16 weeks gestation of Z3A.16 Plan Orders placed: urine protein creatinine ratio as baseline Has MFM anatomy US scheduled. Will check with Dr. Landry to change to liquid potassium as having difficulty swallowing tablets. Reviewed of labor precautions ACOG trimester education reviewed and updated See problem list details for updated plan of care Gestational age appropriate handout given RTO: 4 weeks and wants to discuss TOLAC with JSESICA Orders Orders: Coding Level of Care Code OB Routine Diagnoses Supervision of high risk in first trimester O09.91 Trimester: first trimester Hypertension affecting in first trimester O16.1 Trimester: first trimester History of section Z98.891 Factor V Leiden D68.51 16 weeks gestation of Z3A.16 Weeks of gestation: 16 weeks 04/25/18 1431 <Electronically signed by Cynthia SANTANA> Date Cynthia SANTANA Cosigner Signature: Date (if applicable) CC: CBC W/DIFF, AUTOMATED Collected: 04/11/2018 Status: F Source: [place] 5:11 PM [facility] REPOSITORY TYPE CODE TESTS RESULT OUT [...] 2.33 Performed By: #### L100.0100, B101.7450 #### [facility] [address] [place] [address] #### L3100.0390 #### [facility] (refer to report for specific site) refer to report for address and phone number TYPE AND SCREEN Collected: 04/11/2018 Status: F Source: [place] 5:11 PM [facility] REPOSITORY Order Comment: Reason for Type AND Screen/Red Cells: TYPE CODE TESTS RESULT OUT OF RANGE REFERENCE UNITS LAB B10.0800 O Normal BLOOD TYPE GEL POSITIVE LAB B100.4000 Normal Antibody NEGATIVE Screen Performed By: #### L100.0100, B101.7450 #### [facility] [address] [place], [address] #### L3100.0390 #### [facility] (refer to report for specific site) refer to report for address and phone number HEPATITIS B SURFACE Collected: 04/11/2018 Status: F Source: [place] AG 5:11 PM [facility] REPOSITORY TYPE CODE TESTS RESULT OUT OF RANGE REFERENCE UNITS LAB L3100.0400 Negative Normal HB Negative SURF AG Result Comment: Performed at: [facility] [address] [id number] Photo Lab Specialist: Jose Huerta PhD, Phone: [phone] Performed By: #### L100.0100, B101.7450 #### [facility] [address] [place], [address] #### L3100.0390 #### [facility] (refer to report for specific site) refer to report for address and phone number COMPREHENSIVE METABOLIC Collected: 04/11/2018 Status: F Source: [facility] 5:11 PM [facility] REPOSITORY TYPE CODE TESTS RESULT OUT [...] 10 Performed By: #### L500.4050, L501.0250 #### [facility] [address] [place], [address] GLUCOSE CHALLENGE GEST Collected: 04/11/2018 Status: F Source: [place] 1H 50G 5:11 PM [facility] REPOSITORY TYPE CODE TESTS RESULT OUT OF RANGE REFERENCE UNITS LAB L501.0250 70-140 mg/dL Normal GLU GEST 108 50g 1H Performed By: #### L500.4050, L501.0250 #### [facility] [address] [place], [address] RUBELLA IGG Collected: 04/11/2018 Status: F Source: [place] 5:11 PM [facility] REPOSITORY TYPE CODE TESTS RESULT OUT OF RANGE REFERENCE UNITS LAB L509.4000 IU/mL Normal Rubella IgG 19.3 Result Comment: Antibody results Interpretation of Immune Status < 5 IU/ml Presumed Non-immune 5 - < 10 IU/ml Equivocal > or = 10 IU/ml Presumed Immune Performed By: #### L509.4000, L3890.6005, L700.5000 #### [facility] [address] [place], [address] HIV - W[facility] Collected: 04/11/2018 Status: F Source: [place] 5:11 PM [facility] REPOSITORY TYPE CODE TESTS RESULT OUT OF RANGE REFERENCE UNITS LAB L3890.6005 Nonreactive Normal HIV - W[facility] Non-Reactive Performed By: #### L509.4000, L3890.6005, L700.5000 #### [facility] [address] [place], [address] RAPID PLASMIN REAGIN Collected: 04/11/2018 Status: F Source: [place] (RPR) 5:11 PM [facility] REPOSITORY TYPE CODE TESTS RESULT OUT OF REFERENCE UNITS RANGE LAB L700.5000 NONREACTIVE NONREACTIVE Normal RPR Performed By: #### L509.4000, L3890.6005, L700.5000 #### [facility] [address] [place], [address] CORPORATE TRAFFIC MANAGER OFFICE VISIT Observed: 04/06/2018 Status: F Source: [place] REPORT 6:12 AM [facility] REPOSITORY [facility] [address] [place] [address] OFFICE VISIT Date of Service: 04/05/18 MR#: [id number] Acct: [id number] Name: JESUS HOOD Rep #: [id number] : 1985 Provider: Yi Landry MD Age/Sex: 33/F [place] 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 Factor V Leiden D68.51 discussed risks [...] trimester 04/06/18 0612 <Electronically signed by Yi Landry MD> Date Yi Landry MD Cosigner Signature: Date (if applicable) CC: CORPORATE TRAFFIC MANAGER OFFICE VISIT Observed: 03/07/2018 Status: F Source: [place] REPORT 1:06 PM [facility] [address] [place] [address] OFFICE VISIT Date of Service: 02/14/18 MR#: [id number] Acct: [id number] Name: JESUS HOOD Rep #: [id number] : 1985 Provider: Yi Landry MD Age/Sex: 33/F [place] 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 DateName GA/Weeks Outcome Route Bth WeighInfant GeLabor LgtAnesthesiDel LocatProvider FOB t n h a n Delivery Date: 02/28/13 On 03/02/18 @ 10:27 Mickie Figueroa Breach HPI NOB - NEEDED SEEN THIS WEEK PER IN [place]: Details: JESUS HOOD is a 33 year [...] Visit Date: 03/02/18 no vb cramping Yi Landry MD on 03/02/18 Menstrual History Last Menstral [...] Pulmonary (e.g.,TB,Asthma), Seasonal allergies, Drug/latex allergies/reactions, Breast, Mine Captain surgery, Anesthetic complications, History of abnormal pap, [...] Supervision of high risk in first trimester O. NATALIE 10/04/18 MELISSA Genaock 4. Factor V Leiden D68.51 discussed risks of DVT in - current recommendation for exp management and consider anticoagulation PP Plan - Yi Landry MD Patient oriented to practice and discussed [...] D68.51 02/17/18 2157 <Electronically signed by Yi Landry MD> Date Yi Landry MD 03/07/18 1306<Electronically signed by Cynthia SANTANA> Cosigner Signature: Date (if applicable) Cynthia oCleman CC: Observed: 03/02/2018 Status: F Source: [place] CULTURE, URINE 5:11 PM [facility] REPOSITORY Urine Culture ORGANISM 1: Mixed Gram Positive Organisms [place] Count 11,000-25,000 MIX CULTURE Mixed contaminants. Submit a new specimen if indicated. Performed By: #### M100.0650 #### [facility] [address] [place], [address] CORPORATE TRAFFIC MANAGER OFFICE VISIT Observed: 03/02/2018 Status: F Source: [place] REPORT 10:42 AM [facility] REPOSITORY [facility] [address] [place] [address] OFFICE VISIT Date of Service: 03/02/18 MR#: [id number] Acct: [id number] Name: RUTHJESUS M Rep #: [id number] : 1985 Provider: Yi Landry MD Age/Sex: 33/F Location[place] 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 NATALIE 10/04/18 PC Ashley addy Edgar 4. Hypertension affecting in first trimester O16.1 [...] Supervision of high risk in first trimester O09 Trimester: first trimester Hypertension affecting in first trimester O16.1 Trimester: first trimester 03/02/18 1042 <Electronically signed by Yi Landry MD> Date Yi Landry MD Cosigner Signature: Date (if applicable) CC: CT/NG WCH BY PCR Collected: 02/14/2018 Status: F Source: [place] 4:22 PM [facility] REPOSITORY TYPE CODE TESTS RESULT OUT OF RANGE REFERENCE UNITS LAB L8200.2100 Negative Normal Chlam Negative Trac PCR LAB L8200.2200 Negative Normal NG by Negative PCR Performed By: #### L8200.2000 #### [facility] [address] [place], [address] ALLERGIES ALLERGIES DATE TYPE / CODE NAME / CODE REACTION SEVERITY SOURCE 08/03/2018 Drug No Known Unknown [facility] Allergy/4160 Allergies/F00 Hospital 63441(SNOMED [id number](RXNOR Repository CT) M) ENCOUNTERS ENCOUNTERS ADMIT/DISCHARGE ACCOUNT ADMITTING ENCOUNTER LOCATION SOURCE NUMBER CLASS 08/03/2018/08/03/19 [id number] Ambulatory [facility] [place] [facility] Repository 08/03/2018 [id number] Ambulatory Building:[facility] Repository 08/03/2018 [id number] Ambulatory [facility] Hospital ing:LAB Repository 07/30/2018 [id number] Ambulatory [facility] Hospital ing:[facility] Repository 07/26/2018 [id number] Ambulatory [facility] Hospital ing:LAB Repository 07/23/2018/07/23/20 [id number] Ambulatory BMSBuilding:[facility] [place] [facility] Repository 07/20/2018/07/20/20 [id number] Ambulatory BMSBuilding:[facility] [place] [address] [place] Repository 07/03/2018 [id number] Ambulatory [facility]MSBuilding:[place] Repository 07/03/2018 [id number] Ambulatory [facility] Hospital[facility] Hospital ing:LAB Repository 07/03/2018 [id number] Ambulatory BMSBuilding:W [facility] Repository 06/22/2018 [id number] [facility] Repository 06/22/2018/06/22/20 [id number] Ambulatory BMSBuilding:[facility] [place] [facility] Hospital Repository 05/25/2018/05/25/20 [id number] Ambulatory BMSBuilding:[facility] [place] [facility] [place] Repository 05/11/2018 [id number] Ambulatory [facility] Hospital ing:US Repository 04/25/2018 [id number] Ambulatory [facility] Hospital ing:[facility] Repository 04/25/2018/04/25/20 [id number] Ambulatory BMSBuilding:[address] [place] [address] [facility] Repository 04/11/2018 [id number] Ambulatory [facility] ing:LAB Repository 04/05/2018/04/05/20 [id number] Ambulatory BMSBuilding:[facility] [place] [address] [facility] Repository 03/02/2018 [id number] Ambulatory [facility] ing:LABSPEC Repository 03/02/2018/03/02/20 [id number] Ambulatory BMSBuilding:[facility] [place] [address] [facility] Repository 02/14/2018 [id number] Ambulatory [facility] ing:LABSPEC Repository 02/14/2018/02/15/20 [id number] Ambulatory BMSBuilding:[address] [place] [address] [facility] Repository PAYERS PAYERS ENCOUNTER GUARANTOR PAYER SUBSCRIBER SOURCE 08/03/2018 JESUS Han [id number] Insurance:MEDICAL ALEXANDERDOB: [facility] [id number] [place] Number: Repository [address]Cmn: 330 [id number] [phone] () Date:1846-65-24JQ[address] [address]RD: 08/03/2018 Secondary NOT GIVENUNK [place] Insurance:SELF PAY [facility] Number: Effective Repository Date:2018-08-03 08/03/2018 JESUS Han [id number] Insurance:MEDICAL ALEXANDERDOB: [facility] [id number] [place] Number: Repository [address]Lni: 330 [id number] [phone] () Date:2761-60-22NK[address] [address]HI: 08/03/2018 Secondary NOT GIVENUNK [place] Insurance:SELF PAY [facility] Number: Effective Repository Date:2018-07-31 07/30/2018 JESUS Han [id number] Insurance:MEDICAL ALEXANDERDOB: [facility] [id number] Number: Repository [address]Frf: [phone] [id number] [phone] (HP) Date:9152-35-77CJ [address] [place] [address]TE: 07/30/2018 Secondary NOT GIVENUNK [place] Insurance:SELF PAY [facility] Number: Effective Repository Date:2018-07-23 07/26/2018 JESUS [id number] Insurance:MEDICAL ALEXANDERDOB: Community [employer] [id number] Number: Repository [address]Hae: [phone] [id number] [phone] () Date:5711-70-65LO [address] [place] [address]MN: 07/26/2018 Secondary NOT GIVENUNK [place] Insurance:SELF PAY [facility] Number: Effective Repository Date:2018-07-26 07/23/2018 JESUS [id number] Insurance:ANTHEMPolic ALEXANDERDOB: Community y Number: [id number] [id number] Repository [address]Rtc: 330) Date:0411-04-25YM [phone] () [address] [place] [address]MD: 07/23/2018 Secondary NOT GIVENUNK [place] Insurance:SELF PAY [facility] Number: Effective Repository Date:2018-07-23 07/20/2018 JESUS Han [id number] Insurance:ANTHEMPolic ALEXANDERDOB: Community y Number: [id number] [id number] Repository [address]Zis: 330) Date:6216-84-84FP [phone] () [address] [place] [address]SU: 07/20/2018 Secondary NOT GIVENUNK [place] Insurance:SELF PAY [facility] Number: Effective Repository Date:2018-07-20 07/03/2018 JESUS Han [id number] Insurance:MEDICAL ALEXANDERDOB: [facility] [id number] Number: Repository [address]Akt: [phone] [id number] [phone] (HP) Date:8568-20-55BB [address] [address]TJ: 07/03/2018 Secondary NOT GIVENUNK [place] Insurance:SELF PAY [facility] Number: Effective Repository Date:2018-07-03 07/03/2018 JESUS Andujar Primary JESUS Han [id number] Insurance:MEDICAL ALEXANDERDOB: [facility] [id number] Number: Repository [id number]: [phone] [id number] [phone] (HP) Date:1471-36-00GS [address] [address]OB: 07/03/2018 Secondary NOT GIVENUNK [place] Insurance:SELF PAY [facility] Number: Effective Repository Date:2018-07-03 07/03/2018 JESUS Andujar Primary JESUS aHn [id number] Insurance:MEDICAL ALEXANDERDOB: [facility] [id number] Number[place] Repository [id number]: [phone] [id number] [phone] (HP) Date:4892-20-85WC [address] [address]WS: 07/03/2018 Secondary NOT GIVENUNK [place] Insurance:SELF PAY [facility] Number: Effective Repository Date:2018-07-03 06/22/2018 JESUS Han [id number] Insurance:MEDICAL ALEXANDERDOB: [facility] [id number] Number: Repository [id number]: [phone] [id number] [phone] (HP) Date:7223-72-99MK [address] [address]JM: 06/22/2018 Secondary NOT GIVENUNK [place] Insurance:SELF PAY [facility] Number: Effective Repository Date:2018-06-22 06/22/2018 JESUS Han [id number] Insurance:MEDICAL ALEXANDERDOB: [facility] [id number] Number[place] Repository [address]Dyz: 330 [id number] [phone] (HP) Date:1581-74-42XE [address] [address]TD: 06/22/2018 Secondary NOT GIVENUNK [place] Insurance:SELF PAY [facility] Number: Effective Repository Date:2018-06-18 05/25/2018 JESUS Han [id number] Insurance:MEDICAL ALEXANDERDOB: [facility] [id number] Number[place] Repository [address]Dkx: 330 [id number] [phone] (HP) Date:2002-99-24CA[address] [address]CZ: 05/25/2018 Secondary NOT GIVENUNK [place] Insurance:SELF PAY [facility] Number: Effective Repository Date:2018-05-25 05/11/2018 JESUS Han [id number] Insurance:MEDICAL ALEXANDERDOB: [facility] 8315-04-05POXRancho [place] Number: Repository [address]Gmt: [phone] [id number] [phone] (HP) Date:9222-65-39TC [address] [address]MY: 05/11/2018 Secondary NOT GIVENUNK [place] Insurance:SELF PAY [facility] Number: Effective Repository Date:2018-04-06 04/25/2018 JESUS Han [id number] Insurance:MEDICAL ALEXANDERDOB: [facility] 7451-29-[place] Number[place] Repository [address]Nmd: 330 [id number] [phone]) Date:2934-07-09DF [address] [address]BR: 04/25/2018 Secondary NOT GIVENUNK [place] Insurance:SELF PAY [facility] Number: Effective Repository Date:2018-04-25 04/25/2018 JESUS Han [id number] Insurance:MEDICAL ALEXANDERDOB: [facility] 2468-64-78HLERanch[place] Number: Repository [address]Cmv: 330 [id number] [phone]) Date:4915-12-07VX [address] [address]VM: 04/25/2018 Secondary NOT GIVENUNK [place] Insurance:SELF PAY [facility] Number: Effective Repository Date:2018-04-25 04/11/2018 JESUS Andujar [facility] JESUS Han [id number] Insurance:MEDICAL ALEXANDERDOB: [facility] 2354-25-85REARanch[place] Number: Repository [address]Jzn: 330 [id number] [phone] (HP) Date:8583-51-00KR [address] [address]YW: 04/11/2018 Secondary NOT GIVENUNK [place] Insurance:SELF PAY [facility] Number: Effective Repository Date:2018-04-11 04/05/2018 JESUS Han [id number] Insurance:MEDICAL ALEXANDERDOB: [facility] [id number] [place] Number: Repository [address]Clm: [phone]) [id number] [phone]) Date:1424-28-30SY [address] [address]GM: 04/05/2018 Secondary NOT GIVENUNK [place] Insurance:SELF PAY [facility] Number: Effective Repository Date:2018-04-02 03/02/2018 JESUS Andujar Primary NOT GIVENUNK [place] [id number] Insurance:SELF PAY [place] Number: Effective Repository [phone]: (330) Date:2018-03-02 [phone] () 03/02/2018 JESUS Andujar Primary JESUS Han [id number] Insurance:ANTHEMPolic ALEXANDERDOB: Community [place] y Number: [id number] [place] [id number] Repository [address]Ten: (330) Date:5448-79-23NK [phone] () [address] [place] [address]ZY: 03/02/2018 Secondary NOT GIVENUNK [place] Insurance:SELF PAY [facility] Number: Effective Repository Date:2018-03-02 02/14/2018 JESUS Andujar Primary JESUS Han [id number] Insurance:ANTHEMPolic ALEXANDERDOB: Community [place] Number: [id number] [place] [id number] Repository [address]Zpf: ([phone]) ve Date:3991-88-66CL [phone] () [address] [place] [address]WY: 02/14/2018 Secondary NOT GIVENUNK [place] Insurance:SELF PAY [facility] Number: Effective Repository Date:2018-02-14 02/14/2018 JESUS Andujar Primary JESUS Han [id number] Insurance:ANTHEM OUT ALEXANDERDOB: Community [place] [facility] 0744-29-05LFURanch[place] Number: Repository [phone]: [phone]) [id number] [phone] () Date:5175-56-96EM [address] [place] [address]KF: 02/14/2018 Secondary NOT GIVENUNK [place] Insurance:SELF PAY [facility] Effective Repository Date:2018-02-14
== END ==
PROVIDERS: Family Provider Family Medicine; PCP Family Medicine; Referring Provider Obstetrics & Gynecology; Visit Provider Obstetrics & Gynecology
DX: O16.9 Unspecified maternal hypertension, unspecified trimester (principal); E87.6 Hypokalemia
CPT/HCPCS: 36415; 84132; 93005

== ENCOUNTER → 2018-07-26 10:00 | Outpatient (CLI) | payer OTHER, SELFPAY ==
[2018-07-23 12:26] VITALS: BMI 37.7
[2018-07-26 11:55] LABS: Absolute Lymphocyte Count 1.88 X10^3/ul (0.83-4.51); Absolute Neutrophil Count 6.8 X10^3/uL (2.0-7.7); Basophil# 0.03 X10^3/uL; Basophil% 0.3 % (0-1); Eosinophil# 0.19 X10^3/uL; Hematocrit 34.5 % (37-47); Hemoglobin 11.5 g/dl (12.0-15.0); Lymphocyte # 1.88 X10^3/ul (4.0); Lymphocyte % 19.8 % (19-41); Mean Corp Hgb Conc 33.3 g/gl (32-36); Mean Corpuscular Hgb 30.5 pg (27.0-32.0); Mean Corpuscular Volume 91.5 fL (81-99); Mean Platelet Vol. 9.4 fl (6.2-12.0); Monocyte# 0.48 X10^3/uL; Monocyte% 5.1 % (0-10); Neutrophil # 6.82 X10^3/uL (2.7-7.7); Platelet Count 345 K/mm3 (150-450); RBC Distribution Width CV 13.1 % (11.6-14.6); RBC Distribution Width SD 42.7 fl (35.1-43.9); Red Blood Count 3.77 M/mm3 (4.2-5.4); White Blood Count 9.5 K/mm3 (4.4-11.0)
[2018-07-26 12:12] LABS: POSITIVE COUNT NO; POSITIVE DIFFERENTIAL NO; POSITIVE MORPHOLOGY NO
[2018-07-26 12:25] LABS: Glucose Challenge Gest 1H 50g 140 mg/dL (70-140)
== END ==
PROVIDERS: Referring Provider Obstetrics & Gynecology; Visit Provider Obstetrics & Gynecology
DX: O09.93 Supervision of high risk pregnancy, unspecified, third trimester (principal); Z3A.00 Weeks of gestation of pregnancy not specified
CPT/HCPCS: 82950; 85025; 86850; 86900

== ENCOUNTER → 2018-07-30 13:10 | Outpatient (CLI) | payer OTHER, SELFPAY ==
[2018-07-23 12:26] VITALS: BMI 37.7
--- NOTE | 2018-07-30 13:13 | US_ITS ---
STUDY: ULTRASOUND BREAST - RIGHT REASON FOR EXAM: Female, 33 years old. Palpable lump in the right breast. Redness. TECHNIQUE: Axial and longitudinal images of the RIGHT breast were performed with a high resolution ultrasound transducer. COMPARISON: Prior comparison studies are not available for review at this time. FINDINGS: RIGHT Breast: The medial half of the right breast was examined by ultrasound. There is dense fibroglandular tissue. No solid or cystic abnormality is seen. US/Breast Limited Unilateral IMPRESSION: Dense fibroglandular tissue. No sonographic abnormality is seen. ASSESSMENT CATEGORY: BIRADS Category 1: Negative. A letter regarding these results will be sent to the patient by the facility within 30 days. Electronically Signed: Ambrose Cortez MD at 15:29 EST Tel [phone], Service support ,
== END ==
PROVIDERS: Referring Provider Nurse Practitioner Women's Health; Visit Provider Nurse Practitioner Women's Health
DX: N63.10 Unspecified lump in the right breast, unspecified quadrant (principal)
CPT/HCPCS: 76642

== ENCOUNTER → 2018-08-03 06:20 | Outpatient (CLI) | payer OTHER, SELFPAY ==
[2018-07-23 12:26] VITALS: BMI 37.7
[2018-08-03 08:36] LABS: Glucose GTT-Gestational 1 Hr 159 mg/dL (<190)
[2018-08-03 08:40] LABS: Glucose GTT-Gestation. Fasting 86 mg/dL (<105)
[2018-08-03 10:09] LABS: Glucose GTT-Gestational 2 Hr 144 mg/dL (<165)
[2018-08-03 10:17] LABS: Glucose GTT-Gestational 3 Hr 98 L (<145)
[2018-08-03 18:16] LABS: Protein, Urine (Random) 35.5 mg/dL (<11.9); Protein:Creat Ratio 125 mg/g CRE (0-200)
== END ==
PROVIDERS: Nurse Practitioner Women's Health; Referring Provider Obstetrics & Gynecology; Visit Provider Obstetrics & Gynecology
DX: O16.9 Unspecified maternal hypertension, unspecified trimester (principal)
CPT/HCPCS: 36415; 82570; 82951; 82952; 84156

== ENCOUNTER 2018-08-17 17:10 | Outpatient (CLI) | payer OTHER, SELFPAY ==
[2018-08-17 16:34] VITALS: BMI 37.4
[2018-08-17 17:20] VITALS: BMI 38.0
[2018-08-17 18:35] LABS: Protein, Urine (Random) 54.9 mg/dL (<11.9); Protein:Creat Ratio 181 mg/g CRE (0-200)
--- NOTE | 2018-08-22 00:38 | OB.TRI.NOTE ---
- Problem List (1) Hypertension affecting Status: Acute Qualifiers: Comment: labetalol, check baseline labs normal EKG History of Present Illness Date of Service: 08/17/18 Reason For Visit: NST History of Present Illness: chtn Allergies No Known Allergies Allergy (Verified 08/21/18 13:50) - Pertinent Past Medical History Medical History: Past Medical History (Last Updated 08/21/18 @ 13:48 by Steph Emery) Factor V deficiency Hypertension Surgical History: Past Surgical History (Last Reviewed 08/21/18 @ 13:47 by Steph Emery) delivery delivered Laboratory Studies: Laboratory Tests 08/17/18 Range/Units Unknown U Random Total Protein 54.9 H (<11.9) mg/dL Urine Creatinine 303.00 (NO RANGE EST.) mg/dL Protein/Creatinin Ratio 181 (0-200) mg/g CRE NST - FHR Rate Baby A Baseline: 130 Variability:: Moderate Accelerations:: 15 x 15 Decelerations:: None NST Reactive:: Yes FHR Category:: Category I Uterine Activity:: no regular Impression/Plan chtn reactive nst
== END 2018-08-17 17:53 | disposition home or self-care (01) ==
LOC: WPOUT 17:12 → LABSPEC 17:13 → WPOUT 17:13 → WP 17:14
PROVIDERS: Referring Provider Obstetrics & Gynecology; Visit Provider Obstetrics & Gynecology
DX: O10.919 Unspecified pre-existing hypertension complicating pregnancy, unspecified trimester (principal); Z3A.00 Weeks of gestation of pregnancy not specified; D68.2 Hereditary deficiency of other clotting factors
CPT/HCPCS: 59025; 82570; 84156

== ENCOUNTER 2018-08-31 16:15 | Outpatient (CLI) | payer OTHER, SELFPAY ==
[2018-08-21 13:51] VITALS: BMI 38.0
[2018-08-31 16:33] VITALS: BMI 37.7
--- NOTE | 2018-09-01 12:05 | OB.TRI.NOTE ---
- Problem List (1) Abnormal glucose affecting Status: Acute (2) Mastitis of right breast unrelated to of Status: Acute Comment: 2 episodes: keflex & dicloxicillin given (3) Low serum potassium Status: Acute Comment: 04/25/18 Took short course potassium. Recheck next visit (4) Status: Acute Qualifiers: Comment: Growth US [id number] (5) History of section Status: Acute Comment: discussed . uptodate eduation, (6) Hypertension affecting Status: Acute Qualifiers: Comment: labetalol, check baseline labs normal EKG (7) Supervision of high-risk Status: Acute Qualifiers: Comment: PRR NATALIE 10/04/18 PC Ashley addy Edgar (8) Factor V Leiden Status: Acute Comment: discussed risks of DVT in - current recommendation for exp management and consider anticoagulation PP History of Present Illness Date of Service: 08/31/18 Was patient seen by the physician?: No Reason For Visit: NST History of Present Illness: cHTN Allergies No Known Allergies Allergy (Verified 08/21/18 13:50) - Pertinent Past Medical History Medical History: Past Medical History (Last Updated 08/21/18 @ 13:48 by Steph Emery) Factor V deficiency Hypertension Surgical History: Past Surgical History (Last Reviewed 08/21/18 @ 13:47 by Steph Emery) delivery delivered NST - FHR Rate Baby A Baseline: 120 Variability:: Moderate Accelerations:: 15 x 15 Decelerations:: None NST Reactive:: Yes FHR Category:: Category I Uterine Activity:: irregular Impression/Plan cHTN nst weekly- reassuring and reactive
== END 2018-08-31 17:00 | disposition home or self-care (01) ==
LOC: WPOUT 16:29 → WP 16:29
PROVIDERS: Referring Provider Obstetrics & Gynecology; Visit Provider Obstetrics & Gynecology
DX: O10.919 Unspecified pre-existing hypertension complicating pregnancy, unspecified trimester (principal); Z3A.00 Weeks of gestation of pregnancy not specified; O99.119 Other diseases of the blood and blood-forming organs and certain disorders involving the immune mechanism complicating pregnancy, unspecified trimester; D68.51 Activated protein C resistance
CPT/HCPCS: 59025; 59050; 99218; G0378

== ENCOUNTER → 2018-09-07 13:22 | Outpatient (CLI) | payer OTHER, SELFPAY ==
[2018-09-07 09:57] VITALS: BMI 37.7
== END ==
PROVIDERS: Referring Provider Obstetrics & Gynecology; Visit Provider Obstetrics & Gynecology
DX: O09.90 Supervision of high risk pregnancy, unspecified, unspecified trimester (principal); Z3A.00 Weeks of gestation of pregnancy not specified
CPT/HCPCS: 87077; 87081; 87186

== ENCOUNTER → 2018-09-20 11:27 | Outpatient (CLI) | payer OTHER, SELFPAY ==
[2018-09-20 11:20] VITALS: BMI 37.7
[2018-09-20 13:03] LABS: Potassium 3.5 mmol/L (3.5-5.1)
== END ==
PROVIDERS: Family Provider Family Medicine; PCP Family Medicine; Referring Provider Nurse Practitioner Women's Health; Visit Provider Nurse Practitioner Women's Health
DX: E87.6 Hypokalemia (principal)
CPT/HCPCS: 36415; 84132

== ENCOUNTER 2018-09-21 05:50 | Inpatient (IN) | payer OTHER, SELFPAY ==
[2018-07-23 12:26] VITALS: BMI 37.7
[2018-09-20 11:20] VITALS: BMI 37.7
[2018-09-21] VITALS (20 sets, daily range): BP systolic 101–140; BP diastolic 52–84; PULSE 74–87; RESP 14–18; TEMP 36.5–37.1; O2SAT 96–98; BMI 36.6
--- NOTE | 2018-09-21 00:21 | PCM.HP.OB ---
- Problem List (1) Positive GBS test Status: Acute Comment: antibiotic in labor (2) Polyhydramnios affecting Status: Acute Comment: delivery at 38 weeks (3) Abnormal glucose affecting Status: Acute (4) Mastitis of right breast unrelated to of Status: Acute Comment: 2 episodes: keflex & dicloxicillin given (5) Low serum potassium Status: Acute Comment: 04/25/18 Took short course potassium. Recheck next visit (6) Status: Acute Qualifiers: Comment: Growth US [id number] (7) History of section Status: Acute Comment: discussed . uptodate eduation, (8) Hypertension affecting Status: Acute Qualifiers: Comment: labetalol, check baseline labs normal EKG (9) Supervision of high-risk Status: Acute Qualifiers: Comment: PRR NATALIE 10/04/18 PC Ashley Edgar (10) Factor V Leiden Status: Acute Comment: discussed risks of DVT in - current recommendation for exp management and consider anticoagulation PP History Date of Admission: 09/21/18 Final NATALIE: 10/04/18 Gestational age: 38 Weeks and 1 Days History of this : This is a 33 year-old, , at weeks gestational age presents for RLTCS declined TOLAC. she's had a complicated by htn. Medical History: Medical History (Last Reviewed 09/20/18 @ 11:20 by Leann Robin) Factor V deficiency D68.2 Hypertension I10 Surgical History: Surgical History (Last Reviewed 09/20/18 @ 11:20 by Leann Robin) delivery delivered O82 Allergies No Known Allergies Allergy (Verified 09/20/18 11:20) Home Medications: Home Medications vitamin,calcium,cmkxghoq-zlwr-qedel acid tablet 1 tab PO QDAY 02/14/18 potassium chloride ER 20 mEq tablet,extended release 40 meq PO DAILY #60 tab 04/17/18 labetalol 200 mg tablet 200 mg PO BID #180 tab 06/22/18 Smoking Status: Never smoker Alcohol: None Number of Fetus(es): 1 Heart Tracin History Past Pregnancies: Past Pregnancies 2 miscarriages and 1 term primary uncomplicated Labs: Social History Smoking Status Never smoker Expected Infant Delivery Method: Repeat Section Review of Systems Constitutional: Denies: Fever, Malaise Eyes: Denies: Blurred vision, Vision Change HEENT: Denies: Head Aches, Visual Changes Cardiovascular: Denies: Chest Pain, Palpitations Respiratory: Denies: Cough, Shortness of Breath, Wheezing Gastrointestinal: Denies: Abdominal Pain, Diarrhea, Nausea, Vomiting Genitourinary: Denies: Dysuria, Hematuria Musculoskeletal: Denies: Joint Pain, Muscle pain Skin: Denies: Lesions, Rash Neurological: Denies: Blurred vision, Focal weakness, Headaches Psychiatric: Denies: Anxiety, Depression Endocrine: Denies: Heat/ Cold Intolerance Hematologic/ Lymphatic: Denies: Easy Bruising, Easy Bleeding Physical Exam General: Alert, Cooperative, No apparent distress HEENT: Atraumatic, Normocephalic. Negative for: Thyromegaly, Lymphadenopathy Cardiovascular: Regular rate Lungs: Normal air movement Abdomen: Soft, Non Tender, Gravid Neurological: Deep Tendon Reflexes 2+/4 and Symmetrical, Neuro grossly intact. Negative for: Clonus FORMULA MAKER: Normal external genitalia. Negative for: Vulvar lesions Estimated gestational size: Appropriate for gestational size Presentation: Cephalic Assessment/Plan All Active Problems (Last Reviewed 09/20/18 @ 11:20 by Leann Robin) Positive GBS test (Acute) Polyhydramnios affecting (Acute) Abnormal glucose affecting (Acute) Mastitis of right breast unrelated to of (Acute) Low serum potassium (Acute) (Acute) History of section (Acute) Hypertension affecting (Acute) Supervision of high-risk (Acute) Factor V Leiden (Acute) This is a 33 year-old, G 4P1 at 38 weeks gestational age with CHTN and previous presents for RLTCS declines TOLAC. deliver at 38 due to cHTN well controlled. h/o factor V leiden- plan 6 weeks PP anticoagulation
--- NOTE | 2018-09-21 00:24 | HP.PCM_ITS ---
- Problem List (1) Positive GBS test Status: Acute Comment: antibiotic in labor (2) Polyhydramnios affecting Status: Acute Comment: delivery at 38 weeks (3) Abnormal glucose affecting Status: Acute (4) Mastitis of right breast unrelated to of Status: Acute Comment: 2 episodes: keflex & dicloxicillin given (5) Low serum potassium Status: Acute Comment: 04/25/18 Took short course potassium. Recheck next visit (6) Status: Acute Qualifiers: Comment: Growth US [id number] (7) History of section Status: Acute Comment: discussed . uptodate eduation, (8) Hypertension affecting Status: Acute Qualifiers: Comment: labetalol, check baseline labs normal EKG (9) Supervision of high-risk Status: Acute Qualifiers: Comment: PRR NATALIE 10/04/18 PC Ashley Edgar (10) Factor V Leiden Status: Acute Comment: discussed risks of DVT in - current recommendation for exp management and consider anticoagulation PP History Date of Admission: 09/21/18 Final NATALIE: 10/04/18 Gestational age: 38 Weeks and 1 Days History of this : This is a 33 year-old, , at weeks gestational age presents for RLTCS declined TOLAC. she's had a complicated by htn. Medical History: Medical History (Last Reviewed 09/20/18 @ 11:20 by Leann Robin) Factor V deficiency D68.2 Hypertension I10 Surgical History: Surgical History (Last Reviewed 09/20/18 @ 11:20 by Leann Robin) delivery delivered O82 Allergies No Known Allergies Allergy (Verified 09/20/18 11:20) Home Medications: Home Medications vitamin,calcium,tbtdnxxt-xoor-fcabe acid tablet 1 tab PO QDAY 02/14/18 potassium chloride ER 20 mEq tablet,extended release 40 meq PO DAILY #60 tab 04/17/18 labetalol 200 mg tablet 200 mg PO BID #180 tab 06/22/18 Smoking Status: Never smoker Alcohol: None Number of Fetus(es): 1 Heart Tracin History Past Pregnancies: Past Pregnancies 2 miscarriages and 1 term primary uncomplicated Labs: Social History Smoking Status Never smoker Expected Infant Delivery Method: Repeat Section Review of Systems Constitutional: Denies: Fever, Malaise Eyes: Denies: Blurred vision, Vision Change HEENT: Denies: Head Aches, Visual Changes Cardiovascular: Denies: Chest Pain, Palpitations Respiratory: Denies: Cough, Shortness of Breath, Wheezing Gastrointestinal: Denies: Abdominal Pain, Diarrhea, Nausea, Vomiting Genitourinary: Denies: Dysuria, Hematuria Musculoskeletal: Denies: Joint Pain, Muscle pain Skin: Denies: Lesions, Rash Neurological: Denies: Blurred vision, Focal weakness, Headaches Psychiatric: Denies: Anxiety, Depression Endocrine: Denies: Heat/ Cold Intolerance Hematologic/ Lymphatic: Denies: Easy Bruising, Easy Bleeding Physical Exam General: Alert, Cooperative, No apparent distress HEENT: Atraumatic, Normocephalic. Negative for: Thyromegaly, Lymphadenopathy Cardiovascular: Regular rate Lungs: Normal air movement Abdomen: Soft, Non Tender, Gravid Neurological: Deep Tendon Reflexes 2+/4 and Symmetrical, Neuro grossly intact. 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 Negative for: Vulvar lesions Estimated gestational size: Appropriate for gestational size Presentation: Cephalic Assessment/Plan All Active Problems (Last Reviewed 09/20/18 @ 11:20 by Leann Robin) Positive GBS test (Acute) Polyhydramnios affecting (Acute) Abnormal glucose affecting (Acute) Mastitis of right breast unrelated to of (Acute) Low serum potassium (Acute) (Acute) History of section (Acute) Hypertension affecting (Acute) Supervision of high-risk (Acute) Factor V Leiden (Acute) This is a 33 year-old, G 4P1 at 38 weeks gestational age with CHTN and previous presents for RLTCS declines TOLAC. deliver at 38 due to cHTN well controlled. h/o factor V leiden- plan 6 weeks PP anticoagulation
[2018-09-21] MEDS: Lactated Ringers 1,000 ML 999 ML IV (06:05)
[2018-09-21 06:22] LABS: Absolute Lymphocyte Count 1.19 X10^3/ul (0.83-4.51); Absolute Neutrophil Count 6.1 X10^3/uL (2.0-7.7); Basophil# 0.03 X10^3/uL; Basophil% 0.4 % (0-1); Eosinophil# 0.15 X10^3/uL; Eosinophils% 1.8 % (0-5); Hematocrit 35.6 % (37-47); Hemoglobin 11.9 g/dl (12.0-15.0); Lymphocyte # 1.19 X10^3/ul (4.0); Lymphocyte % 14.2 % (19-41); Mean Corp Hgb Conc 33.4 g/gl (32-36); Mean Corpuscular Hgb 29.8 pg (27.0-32.0); Mean Corpuscular Volume 89.2 fL (81-99); Monocyte# 0.83 X10^3/uL; Monocyte% 9.9 % (0-10); Neutrophil # 6.14 X10^3/uL (2.7-7.7); Platelet Count 320 K/mm3 (150-450); RBC Distribution Width CV 13.3 % (11.6-14.6); RBC Distribution Width SD 42.7 fl (35.1-43.9); Red Blood Count 3.99 M/mm3 (4.2-5.4); White Blood Count 8.4 K/mm3 (4.4-11.0)
[2018-09-21 06:24] LABS: POSITIVE COUNT NO; POSITIVE DIFFERENTIAL NO; POSITIVE MORPHOLOGY NO
[2018-09-21] MEDS: Sodium Citrate/Citric Acid 30 ML UDC PO (07:14)
[2018-09-21] MEDS: Lactated Ringers 1,000 ML 150 ML IV (07:14)
[2018-09-21] MEDS: Cefazolin 2 GM in 0.9% Normal Saline 100 ML IV (07:15)
--- NOTE | 2018-09-21 07:38 | PCM.OPRPT ---
Problem List (1) Positive GBS test Status: Acute Comment: antibiotic in labor (2) Polyhydramnios affecting Status: Acute Comment: delivery at 38 weeks (3) Abnormal glucose affecting Status: Acute (4) Mastitis of right breast unrelated to of Status: Acute Comment: 2 episodes: keflex & dicloxicillin given (5) Low serum potassium Status: Acute Comment: 04/25/18 Took short course potassium. Recheck next visit (6) Status: Acute Qualifiers: Comment: Growth US [id number] (7) History of section Status: Acute Comment: discussed . 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 Spinal anesthesia was placed without difficulty. Ruelas catheter was placed. The patient was placed in the dorsal supine position with leftward tilt. Patient was prepped and draped in the normal sterile fashion. Pfannenstiel skin incision was made with the scalpel and carried through to the underlying layer of fascia with the scalpel. Fascia was nicked in the midline and the incision extended laterally. The rectus bellies were dissected off superiorly and inferiorly with out complication both sharply and bluntly. The peritoneum was entered digitally. The incision was stretched and a low transverse uterine incision was made with the scalpel. The infant's head was delivered atraumatically followed by the anterior and posterior shoulders without complication the rest of the delivered. The cord was clamped and cut and the was handed off to awaiting nurse. The placenta was delivered spontaneously immediately following and was noted to be intact and have a three-vessel cord. The uterus was exteriorized cleared of all clots and debris, and the incision was closed in a double layer closure using #1 Monocryl. The uterus was returned to the maternal abdomen and gutters were cleared of all clots and debris. The ovaries and fallopian tubes were noted to be within normal limits. The peritoneum was closed with 3-0 Monocryl in a running fashion. Fascia was closed with 0 PDS in a running fashion. Subcutaneous tissue was copiously irrigated and the skin was closed with 3-0 Monocryl in a subcuticular fashion. Mepilex dressing were applied without complication. Patient was taken to recovery in stable condition. Grafts/Implants Used: none - Complications none
[2018-09-21] MEDS: Lactated Ringers 1,000 ML 100 ML IV (08:56)
--- NOTE | 2018-09-21 13:56 | DCINST_ITS ---
Discharge Diet: No Restrictions Discharge Activity: May Not Drive - for 2 weeks, May not drive while taking narcotic pain medications., May Shower, May Take a Tub Bath - in 7 days May resume sexual activity in: 4-6 weeks Lifting Restrictions: 20 pounds Additional Activity Instructions:: Nothing in the vagina for 4-6 weeks. You may return to work/school in 6 weeks. Call your doctor if your incision/area has: Continuous Slow Oozing, Sudden Increased Bleeding, Increased Pain/ Swelling, Increased Redness, Foul Smelling Discharge Call your doctor if you observe: Fever of 101 or Higher, Using more than one pad per hour - for 2 hours Suture Line Care: Avoid Pulling/Pushing, Avoid Pinching/Bending Cleanse incision/area with: Keep Dressing Clean & Dry Additional Instructions: If you experience any of the following, contact your healthcare provider. * Bleeding that soaks a pad every hour for 2 hours * Fever 100.4 or higher * Unrelieved incision or abdominal pain * Swelling, redness, discharge or bleeding from your incision or episiotomy site * Your incision begins to separate * Problems urinating (including inability to urinate or burning while urinating). * Visual changes * Severe headache * Flu-like symptoms * Pain or redness in one of both of your breasts * Pain, warmth, tenderness or swelling in your legs, especially the calf area * Frequent nausea and vomiting * Symptoms of depression or anxiety If you experience any of the following, call 911 or go to the nearest Emergency Room. * Chest pain * Problems breathing * Seizure activity * Partial or complete paralysis of a body part, slurred speech, weakness or drooping of the face, or a sudden inability to walk or hold your balance Allergies/Adverse Reactions: Allergies No Known Allergies Allergy (Verified 09/21/18 06:01) Medications to take at Discharge vitamin,calcium,jneiksup-[id number] acid tablet 1 tab PO QDAY 02/14/18 Enoxaparin Sodium [Lovenox] 40 mg SQ DAILY 40 Days #20 ml 09/21/18 Labetalol HCl 200 mg PO BID 09/21/18 Naproxen [Naprosyn] 250 - 500 mg PO Q8H PRN PRN #30 tablet 09/21/18 Oxycodone HCl/Acetaminophen [Percocet 5-325] 1 - 2 tablet PO Q4H PRN PRN 7 Days #28 tablet 09/21/18 The following prescriptions were given: Oxycodone HCl/Acetaminophen [Percocet 5-325] 1 - 2 tablet PO Q4H PRN PRN 7 Days #28 tablet PRN Reason: Moderate-Severe pain Naproxen [Naprosyn] 250 - 500 mg PO Q8H PRN PRN #30 tablet PRN Reason: MILD PAIN Enoxaparin Sodium [Lovenox] 40 mg SQ DAILY 40 Days #20 ml Follow-Up: Call to make an appointment with your doctor for an incision check in 1-2 weeks. You will also need a 6 week post- follow up appointment. Test results from this visit will be discussed in further detail at your follow- up appointment, if applicable. Please Follow Up With: Yi Patton MD - Call to make an appointment for an incision check in 1-2 [phone] When: You will need a post- check in 6 weeks. Primary Care Physician: Felipe Nelson MD [Primary Care Provider] -
[2018-09-21] MEDS: Ketorolac 30 MG/ML Syringe IV ×2 (14:36→19:59)
[2018-09-21] MEDS: Enoxaparin 40 MG/0.4 ML Syringe SC (17:06)
[2018-09-21] MEDS: Labetalol 200 MG Tablet PO (20:08)
[2018-09-22] VITALS (7 sets, daily range): BP systolic 114–122; BP diastolic 64–67; PULSE 78–98; RESP 16–17; TEMP 36.7–37.1; O2SAT 95–99
[2018-09-22] MEDS: Ketorolac 30 MG/ML Syringe IV ×4 (02:18→20:03)
[2018-09-22 04:50] LABS: Hematocrit 31.2 % (37-47); Hemoglobin 10.2 g/dl (12.0-15.0); Mean Corp Hgb Conc 32.7 g/gl (32-36); Mean Corpuscular Hgb 29.1 pg (27.0-32.0); Mean Corpuscular Volume 89.1 fL (81-99); Mean Platelet Vol. 8.9 fl (6.2-12.0); Platelet Count 258 K/mm3 (150-450); RBC Distribution Width CV 13.6 % (11.6-14.6); White Blood Count 10.2 K/mm3 (4.4-11.0)
[2018-09-22 04:57] LABS: Scan Indicated on CBC? Y/N NO
--- NOTE | 2018-09-22 06:33 | PCM.PN.OB ---
Subjective: doing well no complaints pain controlled no CP SOB N V ambulating well tolerating po lochia moderate, going well - Physical Exam General: Alert, Oriented x3 Vital Signs Temp Pulse Resp BP Pulse Ox 98.5 F 80 16 114/67 96 09/22/18 04:10 09/22/18 06:00 09/22/18 06:00 09/22/18 04:10 09/22/18 06:00 Oxygen Delivery Method Room Air Weight: 233 lb 11.04 oz Body Mass Index (BMI) 36.6 Intake and Output for Last 24 Hours 09/20/18 09/21/18 09/22/18 23:59 23:59 23:59 Intake Total 2976 / 2976 3000 / 3000 Output Total 650 / 650 2200 / 2200 Balance 2326 / 2326 800 / 800 Laboratory Tests Past 24 Hrs 09/21/18 09/22/18 06:05 04:20 WBC 10.2 RBC 3.50 L Hgb 10.2 L Hct 31.2 L MCV 89.1 MCH 29.1 MCHC 32.7 RDW 13.6 RDW Differential 44.0 H Plt Count 258 MPV 8.9 Blood Type O POSITIVE Antibody Screen NEGATIVE Medical Necessity - Tobacco Use Smoking Status: Never smoker Assessment/Plan All Active Problems (Last Reviewed 09/20/18 @ 11:20 by Leann Robin) Positive GBS test (Acute) Polyhydramnios affecting (Acute) Abnormal glucose affecting (Acute) Mastitis of right breast unrelated to of (Acute) Low serum potassium (Acute) (Acute) History of section (Acute) Hypertension affecting (Acute) Supervision of high-risk (Acute) Factor V Leiden (Acute) s/p LTCS PPD # 1 1. routine post care 2. breast feeding- support given 3. rh positive 4. rubella immune
[2018-09-22] MEDS: 0.9% Saline Lock 10 ML Syringe IV ×3 (09:17→20:03)
[2018-09-22] MEDS: Prenatal Vits Tablet 1 TABLET PO (10:13)
[2018-09-22] MEDS: Enoxaparin 40 MG/0.4 ML Syringe SC (10:13)
[2018-09-22] MEDS: Labetalol 200 MG Tablet PO ×2 (10:13→22:29)
[2018-09-22] MEDS: Senna/Docusate Sodium 1 Tablet PO (20:02)
[2018-09-23 03:00] VITALS: BP 124/83; PULSE 88; RESP 16; TEMP 37.1; O2SAT 97
[2018-09-23] MEDS: Ketorolac 30 MG/ML Syringe IV ×2 (03:06→08:27)
[2018-09-23] MEDS: 0.9% Saline Lock 10 ML Syringe IV ×2 (03:07→08:28)
--- NOTE | 2018-09-23 06:10 | PCM.PN.OB ---
Subjective: doing well no complaints pain controlled no CP SOB N V ambulating well tolerating po lochia moderate, going well - Physical Exam General: Alert, Oriented x3 Vital Signs Temp Pulse Resp BP Pulse Ox 98.8 F 88 16 124/83 H 97 09/23/18 03:00 09/23/18 03:00 09/23/18 03:00 09/23/18 03:00 09/23/18 03:00 Oxygen Delivery Method Room Air Weight: 233 lb 11.04 oz Body Mass Index (BMI) 36.6 Intake and Output for Last 24 Hours 09/21/18 09/22/18 09/23/18 23:59 23:59 23:59 Intake Total 2976 / 2976 3215 / 3215 Output Total 650 / 650 2900 / 2900 Balance 2326 / 2326 315 / 315 Medical Necessity - Tobacco Use Smoking Status: Never smoker Assessment/Plan All Active Problems (Last Reviewed 09/20/18 @ 11:20 by Leann Robin) Positive GBS test (Acute) Polyhydramnios affecting (Acute) Abnormal glucose affecting (Acute) Mastitis of right breast unrelated to of (Acute) Low serum potassium (Acute) (Acute) History of section (Acute) Hypertension affecting (Acute) Supervision of high-risk (Acute) Factor V Leiden (Acute) s/p LTCS PPD # 2 1. routine post care 2. breast feeding- support given 3. rh positive 4. rubella immune
[2018-09-23 08:35] VITALS: BP 123/86; PULSE 85; RESP 18; TEMP 37.3; O2SAT 96
[2018-09-23] MEDS: Labetalol 200 MG Tablet PO ×2 (10:32→21:54)
[2018-09-23] MEDS: Enoxaparin 40 MG/0.4 ML Syringe SC (10:32)
[2018-09-23] MEDS: Prenatal Vits Tablet 1 TABLET PO (12:45)
[2018-09-23 14:40] VITALS: BP 134/69; PULSE 83; RESP 20; TEMP 37.3; O2SAT 97
[2018-09-23] MEDS: Naproxen 250 MG Tablet PO ×2 (14:55→23:10)
[2018-09-23] MEDS: Acetaminophen 500 MG Tablet 1000 MG PO (17:19)
[2018-09-23 19:30] VITALS: BP 122/72; PULSE 79; RESP 16; TEMP 36.8; O2SAT 95
[2018-09-24 01:00] VITALS: BP 124/78; PULSE 67; RESP 16; TEMP 36.7; O2SAT 96
--- NOTE | 2018-09-24 07:38 | PCM.PN.OB ---
Subjective: doing well no complaints pain controlled no CP SOB N V ambulating well tolerating po lochia moderate, going well - Physical Exam General: Alert, Oriented x3 Abdomen: Soft, Non-Distended, - - FF below U. Dressing dry and intact. Minimal tenderness with exam Vital Signs Temp Pulse Resp BP Pulse Ox 98.0 F 67 16 124/78 H 96 09/24/18 01:00 09/24/18 01:00 09/24/18 01:00 09/24/18 01:00 09/24/18 01:00 Oxygen Delivery Method Room Air Weight: 233 lb 11.04 oz Body Mass Index (BMI) 36.6 Intake and Output for Last 24 Hours 09/22/18 09/23/18 09/24/18 23:59 23:59 23:59 Intake Total 3215 / 3215 Output Total 2900 / 2900 Balance 315 / 315 Medical Necessity - Tobacco Use Smoking Status: Never smoker Assessment/Plan All Active Problems (Last Reviewed 09/20/18 @ 11:20 by Leann Robin) Positive GBS test (Acute) Polyhydramnios affecting (Acute) Abnormal glucose affecting (Acute) Mastitis of right breast unrelated to of (Acute) Low serum potassium (Acute) (Acute) History of section (Acute) Hypertension affecting (Acute) Supervision of high-risk (Acute) Factor V Leiden (Acute) s/p LTCS PPD # 3 1. routine post care 2. breast feeding- support given 3. rh positive 4. rubella immune 5. plans home today
--- NOTE | 2018-09-24 07:48 | PCM.DC.SUM ---
Discharge Date and Diagnosis Date of Admission: 09/21/18 Date of Discharge: 09/24/18 Hospital Course and Treatment Operations: - - [facility] Summary of Care Provided: The patient is a 33 year old F Patient underwent section with routine recovery, return of normal bowel and bladder function. Ambulating, voiding and tolerating PO. Stable for discharge home POD #3. [] - Physical Exam Vital Signs Temp Pulse Resp BP Pulse Ox 98.0 F 67 16 124/78 H 96 09/24/18 01:00 09/24/18 01:00 09/24/18 01:00 09/24/18 01:00 09/24/18 01:00 Oxygen Delivery Method Room Air Weight: 233 lb 11.04 oz Body Mass Index (BMI) 36.6 Intake and Output for Last 24 Hours 09/22/18 09/23/18 09/24/18 23:59 23:59 23:59 Intake Total 3215 / 3215 Output Total 2900 / 2900 Balance 315 / 315 Discharge Diet: No Restrictions Discharge Activity: May Not Drive - for 2 weeks, May not drive while taking narcotic pain medications., May Shower, May Take a Tub Bath - in 7 days May resume sexual activity in: 4-6 weeks Additional Activity Instructions:: Nothing in the vagina for 4-6 weeks. You may return to work/school in 6 weeks. Call your doctor if your incision/area has: Continuous Slow Oozing, Sudden Increased Bleeding, Increased Pain/ Swelling, Increased Redness, Foul Smelling Discharge Call your doctor if you observe: Fever of 101 or Higher, Using more than one pad per hour - for 2 hours Suture Line Care: Avoid Pulling/Pushing, Avoid Pinching/Bending Cleanse incision/area with: Keep Dressing Clean & Dry Home Medications: Medications to take at Discharge vitamin,calcium,pnzzmyfc-odlu-gvatb acid tablet 1 tab PO QDAY 02/14/18 Enoxaparin Sodium [Lovenox] 40 mg SQ DAILY 40 Days #20 ml 09/21/18 Labetalol HCl 200 mg PO BID 09/21/18 Naproxen [Naprosyn] 250 - 500 mg PO Q8H PRN PRN #30 tablet 09/21/18 Oxycodone HCl/Acetaminophen [Percocet 5-325] 1 - 2 tablet PO Q4H PRN PRN 7 Days #28 tablet 09/21/18 naproxen 500 mg tablet 500 mg PO Q12H #30 tab 09/24/18 oxycodone-acetaminophen 5 mg-325 mg tablet 1 tab PO Q6H PRN #15 tab 09/24/18 Following Prescrptions Were Given to Patient: Oxycodone HCl/Acetaminophen [Percocet 5-325] 1 - 2 tablet PO Q4H PRN PRN 7 Days #28 tablet PRN Reason: Moderate-Severe pain Naproxen [Naprosyn] 250 - 500 mg PO Q8H PRN PRN #30 tablet PRN Reason: MILD PAIN Enoxaparin Sodium [Lovenox] 40 mg SQ DAILY 40 Days #20 ml Primary Care Physician: Felipe Nelson MD [Primary Care Provider] - Please Follow Up With: Yi Patton MD - Call to make an appointment for an incision check in 1-2 [phone] When: You will need a post- check in 6 weeks. Patient Instructions: Storing Breastmilk, at Home, ED Breast Infec Medical Necessity - Tobacco Use Smoking Status: Never smoker Meaningful Use Info Meaningful Use Diagnoses (Choose all that apply): None applicable
[2018-09-24 09:00] VITALS: BP 116/72; PULSE 72; RESP 16; TEMP 36.9
[2018-09-24] MEDS: Naproxen 250 MG Tablet PO (09:00)
[2018-09-24] MEDS: Enoxaparin 40 MG/0.4 ML Syringe SC (09:20)
== END 2018-09-24 09:30 | disposition home or self-care (01) | DRG 787 ==
PROVIDERS: Admitting Provider Obstetrics & Gynecology; Family Provider Family Medicine; PCP Family Medicine; Referring Provider Obstetrics & Gynecology; Visit Provider Obstetrics & Gynecology
PROC: 10D00Z1 Extraction of Products of Conception, Low, Open Approach (ICD-10-PCS; CPT 59514; principal; 2018-09-21 07:15)
DX: O10.92 Unspecified pre-existing hypertension complicating childbirth (principal); O98.82 Other maternal infectious and parasitic diseases complicating childbirth; O99.12 Other diseases of the blood and blood-forming organs and certain disorders involving the immune mechanism complicating childbirth; D68.51 Activated protein C resistance; B95.1 Streptococcus, group B, as the cause of diseases classified elsewhere; Z22.330 Carrier of Group B streptococcus; Z3A.38 38 weeks gestation of pregnancy; Z37.0 Single live birth; O40.3XX0 Polyhydramnios, third trimester, not applicable or unspecified; O34.211 Maternal care for low transverse scar from previous cesarean delivery
CPT/HCPCS: 85025; 85027; 86850; 86900; 99218; J7120; A4216; G0378

== ENCOUNTER → 2018-11-01 14:00 | Outpatient (CLI) | payer OTHER, SELFPAY ==
[2018-11-01 14:05] VITALS: BMI 36.6
[2018-11-06 12:15] LABS: HPV APTIMA, High Risk Negative (Negative)
== END ==
PROVIDERS: Family Provider Family Medicine; PCP Family Medicine; Referring Provider Obstetrics & Gynecology; Visit Provider Obstetrics & Gynecology
DX: Z12.4 Encounter for screening for malignant neoplasm of cervix (principal)
CPT/HCPCS: 87624; 88175; G0145

== ENCOUNTER 2020-12-11 13:21 | Outpatient (RCR) | payer OTHER, SELFPAY ==
[2020-09-10 16:55] VITALS: BMI 38.7
== END 2021-01-15 23:59 ==
LOC: IMMUN 13:21
PROVIDERS: PCP Internal Medicine; Visit Provider Family Medicine
DX: Z23 Encounter for immunization (principal)
CPT/HCPCS: 0001A; 91300

== ENCOUNTER → 2024-02-12 | Outpatient (CLI) | payer OTHER, SELFPAY ==
[2024-02-12 09:53] LABS: Absolute Lymphocyte Count 2.35 X10^3/uL (0.83-4.51); Absolute Neutrophil Count 6.5 X10^3/uL (2.0-7.7); Basophil# 0.08 X10^3/uL; Basophil% 0.8 % (0-1); Hematocrit 38.6 % (37-47); Hemoglobin 12.9 g/dL (12.0-15.0); Lymphocyte # 2.35 X10^3/ul (0.83-4.51); Lymphocyte % 23.7 % (19-41); Mean Corp Hgb Conc 33.4 g/dL (32-36); Mean Corpuscular Hgb 28.7 pg (27.0-32.0); Mean Platelet Vol. 9.3 fl (6.2-12.0); Monocyte# 0.65 X10^3/uL; Monocyte% 6.6 % (0-10); NRBC Flagged by Analyzer 0 % (0-5); Neutrophil # 6.49 X10^3/uL (2.7-7.7); Neutrophil % 65.6 % (47-70); Platelet Count 359 K/mm3 (150-450); RBC Distribution Width CV 13.2 % (11.6-14.6); RBC Distribution Width SD 41.1 fl (35.1-43.9); Red Blood Count 4.49 M/mm3 (4.2-5.4); White Blood Count 9.9 K/mm3 (4.4-11.0)
[2024-02-12 10:10] LABS: Vitamin D,25 Hydroxy 36.9 ng/mL
[2024-02-12 10:20] LABS: ALB/GLOB Ratio 0.7 RATIO (0.9-2.4); AST(SGOT) 16 U/L (15-37); Alanine Aminotransfer ALT/SGPT 26 U/L (13-56); Albumin, Serum 3.3 g/dL (3.2-5.0); Alkaline Phosphatase 65 U/L (45-117); Anion Gap 8 (5-15); BUN 10 mg/dL (7-18); BUN/Creat Ratio 15.4 RATIO (10-20); Calcium,Total 8.5 mg/dL (8.5-10.1); Chloride 107 mmol/L (98-107); Cholesterol 144 mg/dL (200); Creatinine, Serum 0.65 mg/dL (0.55-1.02); EST Glomerular Filtration Rate 109 mL/min (>60); Est Glom Filt Rate - Afr Amer 132 mL/min (>60); Globulin 4.5 g/dL (2.2-4.2); Glucose 103 mg/dL (74-106); High Density Lipoprotein 51 mg/dL; Potassium 3.4 mmol/L (3.5-5.1); Protein, Total 7.8 g/dL (6.4-8.2); Sodium Level 138 mmol/L (136-145); Triglycerides 74 mg/dL; Very Low Density Lipoprotein 15 mg/dL (5-40)
== END | disposition home or self-care (01) ==
PROVIDERS: PCP Family Medicine; Referring Provider Family Medicine; Visit Provider Family Medicine
DX: Z00.00 Encounter for general adult medical examination without abnormal findings (principal); I10 Essential (primary) hypertension
CPT/HCPCS: 36415; 80053; 80061; 82306; 84443; 85025